=== PATIENT | male | born 1975 | race Caucasian/White ===

== ENCOUNTER → 2017-08-05 18:47 | Outpatient (CLI) | payer BC, SELFPAY | PROVIDERS: Family Provider Family Medicine Geriatric Medicine; PCP Family Medicine Geriatric Medicine; Visit Provider Pediatrics | DX: R69 Illness, unspecified (principal) | CPT/HCPCS: 87070; 87077; 87186; 87205 ==

== ENCOUNTER 2017-11-28 01:20 | Emergency (ER) | payer BC, SELFPAY ==
[2017-11-28 01:21] VITALS: BP 142/94; PULSE 83; RESP 21; TEMP 36.4; O2SAT 98; BMI 37.2
[2017-11-28 01:24] VITALS: O2SAT 98
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
[2017-11-28] MEDS: HYDROcodone Bitartrate/Apap 5/325 Tablet PO (02:37)
[2017-11-28 02:38] VITALS: RESP 16
== END 2017-11-28 02:39 | disposition home or self-care (01) ==
LOC: ED 02:00
PROVIDERS: Emergency Provider Emergency Medicine; Family Provider Family Medicine Geriatric Medicine; PCP Family Medicine Geriatric Medicine
DX: S09.90XA Unspecified injury of head, initial encounter (principal); S16.1XXA Strain of muscle, fascia and tendon at neck level, initial encounter; V49.88XA Car occupant (driver) (passenger) injured in other specified transport accidents, initial encounter; Y93.89 Activity, other specified; Y92.410 Unspecified street and highway as the place of occurrence of the external cause; G47.33 Obstructive sleep apnea (adult) (pediatric)
CPT/HCPCS: 70450; 72125; 99284

== ENCOUNTER 2018-02-07 10:00 | Outpatient (RCR) | payer BC, SELFPAY ==
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
--- NOTE | 2018-02-07 11:23 | HP.PTDCSUM ---
HP - PT D/C Summary It has been my pleasure to treat JEIMY MCCOLLUM under orders from Aston Schwab, for the diagnosis of DEGENERATIVE CERVICAL DISC,CONCUSSION WITHOUT LOSS CONSCIOUSNESS for a total of 7 visit(s). Discharge Date: 02/07/18 Please see the following information for a summary of their discharge status. - Subjective Subjective: Doing good.Will return to DR in 2weeks. When sitting all day at work 12 hours..cervical spine gets sore,but exercise makes symptoms better. NO STODDARD - Pain Bilateral Neck Pain Intensity (Out of 10): 0 - Overall Improvement % Improvement: 80 - Objective Objective/Function: POSTURE: mild foward posture. PALPATION: unremarkable. NEURO: inact denies parathesia/tingling ,reflexes C5-6-7 2/3. MMT: 4/5 grossly. CERVICAL ROM: flexion min loss,rotation /lateral flexion ,extension min loss no - Goals Goal 1:: Independant with HEP. Goal Progress: Goal Met Goal 2:: Patient to be Independant with posture for ADL'S Goal Progress: Goal Met Goal 3:: Patient decreaase pain cervical spine by 50% or greater to improve function with ADL'S Goal Progress: Goal Met Goal 4:: Patient improve cervical ROM for function of recovery without pain Goal Progress: Goal Met Goal 5:: Patient be able to return to job demands and housewok tasks with no limitations Goal Progress: Goal Met - Plan Plan: D/C TO HEP - D/C Information Discharge Comments: HEP,POSSIBLE HOME TRACTION UNIT If there are questions or concerns regarding this patient's physical therapy, please feel free to call me at [phone]. Thank you for the referral of this patient. Sincerely, Rajiv Hook, PT,
== END 2018-02-07 19:00 | disposition home or self-care (01) ==
LOC: PT 10:00
PROVIDERS: Family Provider Family Medicine Geriatric Medicine; PCP Family Medicine Geriatric Medicine
DX: M50.30 Other cervical disc degeneration, unspecified cervical region (principal); S06.0X0D Concussion without loss of consciousness, subsequent encounter
CPT/HCPCS: 97012; 97035; 97110; 97140; 97162

== ENCOUNTER 2018-08-20 08:58 | Observation (INO) | payer BC, SELFPAY ==
[2018-08-20] VITALS (13 sets, daily range): BP systolic 111–182; BP diastolic 67–104; PULSE 65–84; RESP 16–18; TEMP 35.6–36.9; O2SAT 94–98; BMI 40.0; BMI 39.6; BMI 39.7
--- NOTE | 2018-08-20 09:06 | RAD_ITS ---
STUDY: X-RAY CHEST REASON FOR EXAM: Male, 43 years old. Chest pain. TECHNIQUE: Single AP portable view of the chest. COMPARISON: None. FINDINGS: The lungs are clear and expanded. Scattered calcified granulomas. There is no demonstrated pleural abnormality. Normal size heart. Normal mediastinum and toma. Normal visualized pulmonary arteries. Normal visualized aortic arch and descending thoracic aorta. Normal visualized thoracic spine. Normal visualized ribs, clavicles, and shoulders. There is no demonstrated abnormality of the visualized soft tissue structures of the upper abdomen. RAD/Chest 1 View (Portable) IMPRESSION: Normal x-ray examination of the chest. Electronically Signed: Daren Clayton MD at 9:40 EST Tel [phone], Service support ,
--- NOTE | 2018-08-20 09:06 | EKG12_ITS ---
Test Reason : CHEST PAIN Blood Pressure : / mmHG Vent. Rate : 079 BPM Atrial Rate : 079 BPM P-R Int : 196 ms QRS Dur : 092 ms QT Int : 390 ms P-R-T Axes : 027 071 -28 degrees QTc Int : 447 ms Normal sinus rhythm T wave abnormality, consider inferolateral ischemia Abnormal ECG Confirmed by VALENTINE LARSON, ANGELA ([id number]), scientific editor RAFAEL COURTNEY ([id number]) on 08/21/2018 3:44:34 PM Referred By: YNES Confirmed By:ANGELA GRIJALVA MD
--- NOTE | 2018-08-20 09:06 | NURSING ---
NO OLD EKGS
[2018-08-20] MEDS: Aspirin 81 MG TAB.CHEW 324 MG PO (09:23)
--- NOTE | 2018-08-20 09:24 | ED.DCSUM_ITS ---
- ER Visit Summary Date of Service: 08/20/18 Chief Complaint: Chest pain History of Present Illness: The patient is a 43 M past medical history of anxiety and Nexium. He does not believe he is ever had a stress test or heart cath. No family history of cardiac disease. He quit smoking but he used to smoke cigars occasionally. States he worked out yesterday and had 4 miles on the elliptical. This morning when he awoke he had chest heaviness or tightness. Since about a 5-6 out of 10. He also states when he walks he feels like he cannot catch a deep breath. No pleuritic chest pain. No DVT or PE history. No calf pain or swelling. No hemoptysis. Physical Examination: Well-appearing middle-age male. Vital signs are stable. He is afebrile. His pulse ox is 90% on room air. Initial blood pressure is elevated at 182/104. H EENT exam unremarkable. Neck nontender. Lungs clear to auscultation bilaterally. Heart regular rate and rhythm rate about 80. No murmur appreciated. Chest wall no significant tenderness. Abdomen soft nontender. Normal bowel sounds. No peritoneal signs. Patient is moving all 4 extremities. 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 Dorsi plantar flexion intact. Calves are nontender without edema nor cords. Equal symmetrical radial pulses. Neurologically is awake and alert with no focal motor deficits. Test Results: Patient's initial EKG shows a sinus rhythm a rate of 79 he does have inverted T waves in Leads 2, 3 and aVF. Also in V4, 5 and 6. No old EKG for comparison. CBC normal. Chemistries normal. Troponin normal. Chest x-ray no acute abnormality read both by myself and the radiologist. Normal cardiac silhouette and mediastinum. Emergency Department Course and Treatment: She will undergo a cardiac workup. He will receive p.o. aspirin and sublingual nitro. Treatment Plan: Repeat exam the patient is doing well at 09 51. He is received sublingual nitro without any. I did go over all test results with both he and his . He understands the need for admission and further evaluation. I have the hospitalist on page. Disposition: Admission Impression: Acute chest pain of uncertain etiology with an abnormal EKG This note was generated with [employer] dictation software. It may contain incorrect words, spelling, and punctuation that were not noted in review of the chart prior to signing ED Disposition - Plan for ED Patient: Chief Complaint: Chest Pain Referrals: Francisco Ennis Chi, MD [Primary Care Provider] -
[2018-08-20 09:29] LABS: Absolute Lymphocyte Count 2.23 X10^3/ul (0.83-4.51); Absolute Neutrophil Count 3.8 X10^3/uL (2.0-7.7); Basophil# 0.03 X10^3/uL; Basophil% 0.4 % (0-1); Eosinophil# 0.15 X10^3/uL; Eosinophils% 2.2 % (0-5); Hematocrit 44.8 % (40-54); Hemoglobin 14.7 g/dl (13.0-16.5); Lymphocyte # 2.23 X10^3/ul (4.0); Lymphocyte % 32.6 % (19-41); Mean Corp Hgb Conc 32.8 g/gl (32-36); Mean Corpuscular Hgb 28.3 pg (27.0-32.0); Mean Corpuscular Volume 86.2 fL (80-94); Mean Platelet Vol. 9.5 fl (6.2-12.0); Monocyte# 0.61 X10^3/uL; Monocyte% 8.9 % (0-10); Neutrophil % 55.6 % (47-70); POSITIVE COUNT NO; POSITIVE DIFFERENTIAL NO; POSITIVE MORPHOLOGY NO; Platelet Count 262 K/mm3 (150-450); RBC Distribution Width CV 13.4 % (11.6-14.6); RBC Distribution Width SD 41.9 fl (35.1-43.9); White Blood Count 6.8 K/mm3 (4.4-11.0)
[2018-08-20 09:35] LABS: Anion Gap 9 (5-15); BUN 16 mg/dL (7-18); BUN/Creat Ratio 15.8 RATIO (10-20); Calcium,Total 8.9 mg/dL (8.5-10.1); Chloride 107 mmol/L (98-107); Creatinine, Serum 1.01 mg/dL (0.70-1.30); EST Glomerular Filtration Rate 86 mL/min (>60); Est Glom Filt Rate - Afr Amer 105 mL/min (>60); Estimated Creatinine Clearance 118.17 ml/min; Glucose 104 mg/dL (74-106); Potassium 4.1 mmol/L (3.5-5.1); Sodium Level 142 mmol/L (136-145)
--- NOTE | 2018-08-20 09:57 | NURSING ---
DR RONALDO CLARKE
--- NOTE | 2018-08-20 10:04 | NURSING ---
PCU OBS CP RONALDO
--- NOTE | 2018-08-20 10:06 | HP.PCM_ITS ---
Problem List (1) Chest pain Status: Acute (2) BMI 39.0-39.9,adult Status: Chronic (3) GERD (gastroesophageal reflux disease) Status: Chronic (4) Anxiety disorder Status: Chronic History of Present Illness Date of Admission: 08/20/18 Chief Complaint: Chest discomfort The patient is a 43 year old M with past medical history is again for GERD, anxiety disorder who presented with chest discomfort. Patient reports weeks of intermittent chest pain. Patient related the pain to exertion on occasions however he did also experience pain was at rest. Patient did experience some nausea on the morning of his admission when his pain was more intense than usual. He denied any shortness of breath. He denies any lightheadedness. He presented to the emergency department initial set of cardiac enzymes Came back negative admitted to a monitored bed for subsequent management Past Medical History Past Medical History (Chronic Problems): Chronic Problems BMI 39.0-39.9,adult (Chronic) GERD (gastroesophageal reflux disease) (Chronic) Anxiety disorder (Chronic) Allergies flaxseed Allergy (Verified 11/28/17 01:20) Itching Home Medications: Ambulatory Orders Medication Instructions Recorded traZODone [Desyrel] 100 mg PO QHS PRN 06/29/16 Mcdowell-3 Fatty Acids [Fish Oil] 500 mg PO DAILY 07/09/17 Multivitamin [Multiple Vitamins] 1 tab PO DAILY 08/20/18 Smoking Status: Never smoker - *Family History Maternal History Items: - - Healthy with no significant medical issues Paternal History Items: Heart Disease - CHF Review of Systems Constitutional: Denies: Anorexia, Chills, Fever, Night Sweats, Weight Change HEENT: Denies: Head Aches, Sinus Congestion, Sinus Drainage Cardiovascular: Reports: Chest Pain. Denies: Orthopnea, Palpitations, Paroxysmal Noc. Dyspnea Respiratory: Denies: Cough, Shortness of breath at rest, Shortness of breath upon exertion, Sputum production Gastrointestinal: Denies: Abdominal Pain, Hematemesis, Hematochezia, Nausea, Me nic, Vomiting Genitourinary: Denies: Dysuria, Frequency, Hematuria, Urgency Musculoskeletal: Denies: Joint Pain, Joint Tenderness Skin: Denies: Rash Neurological: Denies: Focal weakness, Numbness, Tingling Psychiatric: Reports: Anxiety. Denies: Homicidal Ideations, Suicidal Ideations Hematologic/ Lymphatic: Denies: Easy Bruising, Easy Bleeding VTE Information - Inpt Only VTE Present on Admission: No VTE Mechan Device Prophylaxis: Knee High KIMBERLY Hose VTE Pharm Prophylaxis ordered?: Yes Patient Problems: Active and Suspected Problems Chest pain (Acute) Objective: GENERAL: cooperative HEENT: Atraumatic; moist oral mucosa EYES; Anicteric, Normal Conjunctiva NECK; supple, normal thyroid, no distended JVD. RESPIRATORY: Diminished to auscultation bilaterally, CARDIOVASCULAR: Regular S1 S2, no audible murmurs GI: soft, non-tender, normoactive bowel sounds, : No Renal angle tenderness; EXTREMITIES: No edema, no clubbing, no cyanosis. MUSCULOSKELETAL: No Joint Tenderness; no muscle waisting NEURO: Awake; no lateralizing signs. SKIN: No Rash PSYCH; Normal affect - Physical Exam Vital Signs Temp Pulse Resp BP Pulse Ox 96.1 F L 77 18 111/71 94 08/20/18 08:59 08/20/18 09:50 08/20/18 09:49 08/20/18 09:50 08/20/18 09:49 Oxygen Flow Rate (L/min) 2 Oxygen Delivery Method Nasal Cannula Weight: 149.1 kg Body Mass Index (BMI) 40.0 Laboratory Tests Past 24 Hrs 08/20/18 08/20/18 09:11 09:11 WBC 6.8 RBC 5.20 Hgb 14.7 Hct 44.8 MCV 86.2 MCH 28.3 MCHC 32.8 RDW 13.4 RDW Differential 41.9 Plt Count 262 MPV 9.5 Immature Gran % (Auto) 0.300 Neut % (Auto) 55.6 Lymph % (Auto) 32.6 Bracken % (Auto) 8.9 Eos % (Auto) 2.2 Baso % (Auto) 0.4 Absolute Neuts (auto) 3.8 Absolute Lymphs (auto) 2.23 Total Counted Not Reportable Sodium 142 Potassium 4.1 Chloride 107 Carbon Dioxide 26.0 Anion Gap 9 BUN 16 Creatinine 1.01 Estim Creat Clear Calc 118.17 Est GFR (MDRD) Af Amer 105 Est GFR (MDRD) Non-Af 86 BUN/Creatinine Ratio 15.8 Glucose 104 Calcium 8.9 Troponin I < 0.015 Assessment/Plan All Active Problems Chest pain (Acute) Patient is a 43-year-old gentleman presenting with chest pain 1. Chest pain patient has been admitted dated bed: Plan is to rule out SD with serial cardiac enzymes patient undergo a nuclear stress test if SD is ruled out 2. Obesity with BMI of 39.7 lifestyle modification including weight loss advised 3. Insomnia patient uses trazodone at night 4. Anxiety disorder 5. GERD 6. DVT prophylaxis SC Lovenox Code Visit OBSV E&M: 48740 Initial observation care L3
--- NOTE | 2018-08-20 10:17 | ECHOD_ITS ---
Reason For Study: Chest Pain Procedure This was a 2D Doppler, Color Flow transthoracic echocardiogram. Exam performed portable in patient room. Left Ventricle Normal size and thickness. The estimated ejection fraction is 65 %. Normal diastology for age. No regional wall motion abnormalities noted. Right Ventricle Normal size and thickness. Normal systolic function. Atria The left atrium is mildly enlarged. Normal right atrium. Normal atrial septum. Mitral Valve The mitral valve is structurally normal. No prolapse or stenosis seen. Trivial mitral valve insufficiency. Tricuspid Valve Normal tricuspid valve. Trivial tricuspid valve insufficiency. Right ventricular systolic pressure estimated to be 19 mmHg. Aortic Valve Trisinus/trileaflet aortic valve. Pulmonic Valve Normal pulmonic valve. Great Vessels Normal aortic root. Normal arch. Normal inferior vena cava. Inferior vena cava collapse with sniff. Pericardium/Pleural No pericardial effusion. Medication Definity0.5ml given slow IV push to enhance endocardial definition. MMode/2D Measurements & Calculations LVIDd: 4.8 cm IVSd: 1.7 cm Ao root diam: 3.1 cm LVIDs: 2.9 cm LVPWd: 1.6 cm RVDd: 3.3 cm FS: 40.3 % LAV(MOD-bp): 84.1 ml LVAd ap4: 36.6 cm2 SV(MOD-sp4): 77.7 ml LAV(MOD-bp) Indexed: 30.8 ml/m2 EDV(MOD-sp4): 120.1 ml LAV(MOD-sp2): 101.2 ml EDV(sp4-el): 122.1 ml LAV(MOD-sp4): 70.1 ml LVAs ap4: 20.1 cm2 ESV(MOD-sp4): 42.4 ml ESV(sp4-el): 43.4 ml EF(MOD-sp4): 64.7 % EF(sp4-el): 64.5 % SV(sp4-el): 78.7 ml LA A4 area: 22.9 cm2 LA dimension(2D): 4.4 cm RA A4 area: 21.0 cm2 Doppler Measurements & Calculations MV E max florin: 85.9 cm/sec Lat Peak E' Florin: 14.0 cm/sec Med Peak E' Florin: 10.8 cm/sec MV A max florin: 47.8 cm/sec E/E' lat: 6.1 E/E' med: 8.0 MV E/A: 1.8 Ao V2 max: 122.2 cm/sec LV V1 max: 104.2 cm/sec PA V2 max: 89.7 cm/sec Ao max P.0 mmHg LV V1 max P.3 mmHg Ao V2 mean: 86.4 cm/sec Ao mean P.3 mmHg Ao V2 VTI: 25.4 cm TR max florin: 188.7 cm/sec TR max P.2 mmHg Interpretation Summary The estimated ejection fraction is 65 %. Normal diastology for age. Trivial mitral valve insufficiency. Trivial tricuspid valve insufficiency. Right ventricular systolic pressure estimated to be 19 mmHg. The study was technically difficult. There is no comparison study available. Contrast injection was performed. Ordering Physician: Schuyler Ramos Referring Physician: Francisco Ennis Chi Performed By: Nya Noonan, PERLA, RVT
[2018-08-20] MEDS: Enoxaparin 40 MG/0.4 ML Syringe SC (11:09)
[2018-08-20] MEDS: Sodium Chloride 0.65% 1 SPRAY SPRAY.BTL 2 SPRAY NASAL (14:16)
[2018-08-20] MEDS: traZODone 50 MG Tablet 100 MG PO (20:56)
[2018-08-21 02:56] VITALS: BP 114/67; PULSE 74; RESP 14; TEMP 36.8; O2SAT 93
[2018-08-21 03:05] VITALS: PULSE 83
[2018-08-21 05:22] LABS: Hemoglobin 14.3 g/dl (13.0-16.5); Mean Corpuscular Hgb 28.9 pg (27.0-32.0); Mean Corpuscular Volume 84.8 fL (80-94); Mean Platelet Vol. 9.1 fl (6.2-12.0); Platelet Count 273 K/mm3 (150-450); RBC Distribution Width CV 13.3 % (11.6-14.6); Red Blood Count 4.95 M/mm3 (4.6-6.2)
[2018-08-21 05:23] LABS: Scan Indicated on CBC? Y/N NO
[2018-08-21 05:29] VITALS: BP 112/71; PULSE 64; RESP 14; TEMP 36.7; O2SAT 96
[2018-08-21] MEDS: Aspirin E.C. 81 MG Tablet PO (05:30)
[2018-08-21 05:32] LABS: Prothrombin Time (Protime)PT. 13.1 SECONDS (11.7-14.9)
[2018-08-21 05:33] LABS: Partial Thromboplast Time 30.5 Seconds (24.1-36.2)
[2018-08-21 05:47] LABS: Anion Gap 7 (5-15); BUN 12 mg/dL (7-18); BUN/Creat Ratio 12.6 RATIO (10-20); Calcium,Total 8.5 mg/dL (8.5-10.1); Chloride 108 mmol/L (98-107); Cholesterol 155 mg/dL (200); Creatinine, Serum 0.95 mg/dL (0.70-1.30); EST Glomerular Filtration Rate 93 mL/min (>60); Est Glom Filt Rate - Afr Amer 112 mL/min (>60); Estimated Creatinine Clearance 125.63 ml/min; Glucose 98 mg/dL (74-106); High Density Lipoprotein 32 mg/dL; Potassium 4.1 mmol/L (3.5-5.1); Sodium Level 141 mmol/L (136-145); Thyroid Stim Hormone (TSH) 2.65 uIU/mL (0.358-3.74); Triglycerides 186 mg/dL; Very Low Density Lipoprotein 37 mg/dL (5-40)
--- NOTE | 2018-08-21 05:55 | EKG12_ITS ---
Test Reason : AM Blood Pressure : / mmHG Vent. Rate : 067 BPM Atrial Rate : 067 BPM P-R Int : 206 ms QRS Dur : 092 ms QT Int : 416 ms P-R-T Axes : 020 038 -41 degrees QTc Int : 439 ms Normal sinus rhythm T wave abnormality, consider inferior ischemia T wave abnormality, consider anterolateral ischemia Abnormal ECG When compared with ECG of 20-AUG-2018 09:12, MANUAL COMPARISON REQUIRED, DATA IS UNCONFIRMED Confirmed by VIKTOR OVERTON ([id number]), associate entertainment editor RAFAEL COURTNEY ([id number]) on 08/25/2018 2:57:11 PM Referred By: RONALDO Confirmed By:VIKTOR OVERTON
[2018-08-21 06:22] VITALS: PULSE 67
[2018-08-21 09:14] VITALS: BP 121/71; PULSE 78; RESP 14; TEMP 37.2; O2SAT 97
--- NOTE | 2018-08-21 09:53 | STRESSREP_ITS ---
Stress Test Report Date: 08/21/2018 Procedure: Exercise tolerance test/imaging study Indications: Chest pain; abnormal ECG Consent: Per the patient Procedure: The patient exercised on a Tang protocol for 9 minutes completing Stage III achieving a peak heart rate of 164 bpm (91 % predicted maximal heart rate) with a peak blood pressure 210/88 mmHg and a peak MET capacity of 10 METs. The baseline ECG demonstrated normal sinus rhythm; T wave abnormality. The peak exercise ECG demonstrated continued T wave abnormality. There were no cardiac dysrhythmias pretest, during exercise, or recovery. The blood pressure response was considered a normal resting blood pressure with an exaggerated response. The functional capacity was considered good. There was no complaint of chest discomfort during exercise or recovery. The examination was discontinued secondary to dyspnea. Impression: 1. Technically adequate (percent predicted maximal heart rate greater than 85%) exercise tolerance test 2. Peak exercise ECG continued T wave abnormality 3. There were no cardiac dysrhythmias pretest, during exercise, or recovery 4. Nuclear images pending Myocardial perfusion imaging study: Technique: The patient was injected with 14.6 mCi of technetium 99m Cardiolite and subsequently rest SPECT Cardiolite nuclear imaging was obtained in the horizon farhan long, vertical long, and short axis views. The patient exercised on a Tang protocol for 9 minutes completing Stage III achieving a peak heart rate of 164 bpm (91 % predicted maximal heart rate) with a peak blood pressure 210/88 mmHg and a peak MET capacity of 10 METs. The patient was injected with 44.9 mCi of technetium 99m Cardiolite and subsequently stress SPECT Cardiolite nuclear imaging was obtained in the horizontal long, vertical long, and short axis views. A gated Cardiolite study at peak stress was obtained. Interpretation: Rest and stress SPECT Cardiolite nuclear imaging status post realignment, normalization, and attenuation correction, demonstrates the appearance of relative uniform tracer uptake and myocardial perfusion appearing within normal limits. There is end systolic thickening and brightening. The gated Cardiolite study demonstrates myocardial thickening and inward wall motion. The reported LVEF is 61 %. Impression: 1. Rest and stress SPECT Cardiolite nuclear imaging demonstrate relative uniform tracer uptake and myocardial perfusion appearing within normal limits. 2. The gated Cardiolite study reports an LVEF of 61 %. This note was generated with [employer] software. It may contain incorrect words, spelling, and punctuation that were not noted in checking the note before signing.
--- NOTE | 2018-08-21 10:23 | DCINST_ITS ---
- Discharge Diagnoses Current Active Problems: Current Active and Chronic Problems Chest pain (Acute) BMI 39.0-39.9,adult (Chronic) GERD (gastroesophageal reflux disease) (Chronic) Anxiety disorder (Chronic) You will use the following diet at home:: No restrictions Instructions: ED Chest Pain NonCardiac Allergies/Adverse Reactions: Allergies flaxseed Allergy (Verified 11/28/17 01:20) Itching spinach Allergy (Verified 08/20/18 10:36) Itching Medications to take at Discharge traZODone [Desyrel] 100 mg PO QHS PRN 06/29/16 [place]-3 Fatty Acids [Fish Oil] 500 mg PO DAILY 07/09/17 Multivitamin [Multiple Vitamins] 1 tab PO DAILY 08/20/18 Primary Care Physician: Francisco Ennis Chi, MD [Primary Care Provider] - Test Results: Test results from this visit will be discussed in further detail at your follow- up appointment, if applicable. Proposed Discharge Date: 08/21/18
--- NOTE | 2018-08-21 10:23 | PCM.DC.SUM ---
Discharge Date and Diagnosis - Problem List Patient Problems: Active and Suspected Problems Chest pain (Acute) Date of Admission: 08/20/18 Date of Discharge: 08/21/18 - Primary Discharge Diagnosis Active and Suspected Problems Chest pain (Acute) - Secondary Discharge Diagnosis Chronic Problems BMI 39.0-39.9,adult (Chronic) GERD (gastroesophageal reflux disease) (Chronic) Anxiety disorder (Chronic) Hospital Course and Treatment Imaging Results: 08/21/18 05:55 Nuclear Stress Test - Treadmil [NM] AM (NON MEDS) Summary of Care Provided: Patient is a 43-year-old gentleman presenting with chest pain 1. Chest pain patient has been admitted dated bed: Rule out myocardial infarction with serial cardiac enzymes patient underwent a nuclear stress test which was negative for stress-induced ischemia. Patient however had a hypertensive reaction during the stress test. He was informed of this instructed to follow-up with PCP to keep a close eye on his blood pressure 2. Obesity with BMI of 39.7 lifestyle modification including weight loss advised 3. Insomnia patient uses trazodone at night 4. Anxiety disorder 5. GERD 6. DVT prophylaxis SC Lovenox Patient Problems: Active and Suspected Problems Chest pain (Acute) - Physical Exam Vital Signs Temp Pulse Resp BP Pulse Ox 99 F 78 14 121/71 H 97 08/21/18 09:14 08/21/18 09:14 08/21/18 09:14 08/21/18 09:14 08/21/18 09:14 Oxygen Flow Rate (L/min) 2 Oxygen Delivery Method Room Air Weight: 147.9 kg Body Mass Index (BMI) 39.6 Intake and Output for Last 24 Hours 08/19/18 08/20/18 08/21/18 23:59 23:59 23:59 Intake Total 1280 / 1280 Balance 1280 / 1280 Laboratory Tests Past 24 Hrs 08/20/18 08/20/18 08/21/18 11:40 14:54 05:10 WBC 6.0 RBC 4.95 Hgb 14.3 Hct 42.0 MCV 84.8 MCH 28.9 MCHC 34.0 RDW 13.3 RDW Differential 41.0 Plt Count 273 MPV 9.1 PT INR APTT Sodium Potassium Chloride Carbon Dioxide Anion Gap BUN Creatinine Estim Creat Clear Calc Est GFR (MDRD) Af Amer Est GFR (MDRD) Non-Af BUN/Creatinine Ratio Glucose Calcium Troponin I < 0.015 < 0.015 Triglycerides Cholesterol LDL Cholesterol VLDL Cholesterol HDL Cholesterol TSH 08/21/18 08/21/18 05:10 05:10 WBC RBC Hgb Hct MCV MCH MCHC RDW RDW Differential Plt Count MPV PT 13.1 INR 1.0 APTT 30.5 Sodium 141 Potassium 4.1 Chloride 108 H Carbon Dioxide 26.0 Anion Gap 7 BUN 12 Creatinine 0.95 Estim Creat Clear Calc 125.63 Est GFR (MDRD) Af Amer 112 Est GFR (MDRD) Non-Af 93 BUN/Creatinine Ratio 12.6 Glucose 98 Calcium 8.5 Troponin I Triglycerides 186 Cholesterol 155 LDL Cholesterol 86 VLDL Cholesterol 37 HDL Cholesterol 32 L TSH 2.65 Discharge Diet: No Restrictions Home Medications: Medications to take at Discharge traZODone [Desyrel] 100 mg PO QHS PRN 06/29/16 [place]-3 Fatty Acids [Fish Oil] 500 mg PO DAILY 07/09/17 Multivitamin [Multiple Vitamins] 1 tab PO DAILY 08/20/18 Primary Care Physician: Francisco Ennis Chi, MD [Primary Care Provider] - Patient Instructions: ED Chest Pain NonCardiac Disposition: Home Minutes spent on discharge:: 35 Patient Condition:: Stable Medical Necessity - Tobacco Use Smoking Status: Never smoker Meaningful Use Info Meaningful Use Diagnoses (Choose all that apply): None applicable Code Visit OBSV E&M: 42016 Observation care discharge
--- NOTE | 2018-08-21 10:37 | PCM.PN.HOSP ---
Patient Problems: Active and Suspected Problems Chest pain (Acute) Subjective: To undergo a nuclear stress test Objective: GENERAL: cooperative HEENT: Atraumatic; moist oral mucosa EYES; Anicteric, Normal Conjunctiva NECK; supple, normal thyroid, no distended JVD. RESPIRATORY: Diminished to auscultation bilaterally, CARDIOVASCULAR: Regular S1 S2, no audible murmurs GI: soft, non-tender, normoactive bowel sounds, : No Renal angle tenderness; EXTREMITIES: No edema, no clubbing, no cyanosis. MUSCULOSKELETAL: No Joint Tenderness; no muscle waisting NEURO: Awake; no lateralizing signs. SKIN: No Rash PSYCH; Normal affect Vitals/I&O's: Vital Signs Temp Pulse Resp BP Pulse Ox 99 F 78 14 121/71 H 97 08/21/18 09:14 08/21/18 09:14 08/21/18 09:14 08/21/18 09:14 08/21/18 09:14 Oxygen Flow Rate (L/min) 2 Oxygen Delivery Method Room Air Weight: 147.9 kg Body Mass Index (BMI) 39.6 Intake and Output for Last 24 Hours 08/19/18 08/20/18 08/21/18 23:59 23:59 23:59 Intake Total 1280 / 1280 Balance 1280 / 1280 Laboratory Results 08/20/18 11:40: Troponin I < 0.015 08/20/18 14:54: Troponin I < 0.015 08/21/18 05:10: WBC 6.0, RBC 4.95, Hgb 14.3, Hct 42.0, MCV 84.8, MCH 28.9, MCHC 34.0, RDW 13.3, RDW Differential 41.0, Plt Count 273, MPV 9.1 08/21/18 05:10: Sodium 141, Potassium 4.1, Chloride 108 H, Carbon Dioxide 26.0, Anion Gap 7, BUN 12, Creatinine 0.95, Estim Creat Clear Calc 125.63, Est GFR (MDRD) Af Amer 112, Est GFR (MDRD) Non-Af 93, BUN/Creatinine Ratio 12.6, Glucose 98, Calcium 8.5, Triglycerides 186, Cholesterol 155, LDL Cholesterol 86, VLDL Cholesterol 37, HDL Cholesterol 32 L, TSH 2.65 08/21/18 05:10: PT 13.1, INR 1.0, APTT 30.5 Current Medications Aspirin (Ecotrin) 81 mg PO DAILY@0800 [facility] Last Admin: 08/21/18 05:30 Dose: 81 mg Enoxaparin Sodium (Lovenox) 40 mg SC DAILY@1000 [facility] Last Admin: 08/20/18 11:09 Dose: 40 mg Magnesium Hydroxide (Milk Of Magnesia) 30 ml PO DAILY PRN PRN Reason: Constipation Nitroglycerin (Nitrostat) 0.4 mg SUBLINGUAL Q5M PRN PRN Reason: CHEST PAIN Sodium Chloride () 5 - 30 ml IV UD PRN PRN Reason: SALINE FLUSH Sodium Chloride (Winkler Nasal [place]) 2 spray NASAL BID PRN PRN PRN Reason: NASAL DRYNESS Last Admin: 08/20/18 14:16 Dose: 2 spray Trazodone HCl (Desyrel) 100 mg PO QHS PRN PRN Reason: INSOMNIA Last Admin: 08/20/18 20:56 Dose: 100 mg Medical Necessity - Tobacco Use Smoking Status: Never smoker Assessment/Plan All Active Problems Chest pain (Acute) Patient is a 43-year-old gentleman presenting with chest pain 1. Chest pain patient has been admitted dated bed: Plan is to rule out CO with serial cardiac enzymes patient undergo a nuclear stress test if CO is ruled out 2. Obesity with BMI of 39.7 lifestyle modification including weight loss advised 3. Insomnia patient uses trazodone at night 4. Anxiety disorder 5. GERD 6. DVT prophylaxis SC Lovenox
== END 2018-08-21 10:22 | disposition home or self-care (01) ==
LOC: PCU 10:27 → ED 10:27
PROVIDERS: Admitting Provider Internal Medicine; Emergency Provider Emergency Medicine; Family Provider Family Medicine Geriatric Medicine; PCP Family Medicine Geriatric Medicine; Visit Provider Internal Medicine
DX: R07.89 Other chest pain (principal); K21.9 Gastro-esophageal reflux disease without esophagitis; Z23 Encounter for immunization; Z79.899 Other long term (current) drug therapy; E66.9 Obesity, unspecified; Z68.39 Body mass index [BMI] 39.0-39.9, adult; Z71.3 Dietary counseling and surveillance; G47.00 Insomnia, unspecified; Z87.891 Personal history of nicotine dependence
CPT/HCPCS: 36415; 71045; 78452; 80048; 80061; 84443; 84484; 85025; 85027; 85610; 85730; 93005; 93017; 93306; 96372; 99218; 99284; 99406; A9500; Q9957; 90686; A4216; C8929; G0378

== ENCOUNTER → 2018-08-27 15:07 | Outpatient (CLI) | payer BC, SELFPAY ==
[2018-08-20 10:29] VITALS: BMI 39.6
[2018-08-27 17:14] LABS: Absolute Lymphocyte Count 1.96 X10^3/ul (0.83-4.51); Absolute Neutrophil Count 4.6 X10^3/uL (2.0-7.7); Basophil# 0.02 X10^3/uL; Basophil% 0.3 % (0-1); Eosinophil# 0.12 X10^3/uL; Eosinophils% 1.6 % (0-5); Hematocrit 43.9 % (40-54); Hemoglobin 14.9 g/dl (13.0-16.5); Lymphocyte # 1.96 X10^3/ul (4.0); Lymphocyte % 26.5 % (19-41); Mean Corp Hgb Conc 33.9 g/gl (32-36); Mean Corpuscular Hgb 28.7 pg (27.0-32.0); Mean Corpuscular Volume 84.4 fL (80-94); Mean Platelet Vol. 9.7 fl (6.2-12.0); Monocyte# 0.62 X10^3/uL; Monocyte% 8.4 % (0-10); Neutrophil # 4.64 X10^3/uL (2.7-7.7); Neutrophil % 62.8 % (47-70); Platelet Count 373 K/mm3 (150-450); RBC Distribution Width CV 13.2 % (11.6-14.6); RBC Distribution Width SD 40.3 fl (35.1-43.9); White Blood Count 7.4 K/mm3 (4.4-11.0)
[2018-08-27 17:16] LABS: POSITIVE COUNT NO; POSITIVE DIFFERENTIAL NO; POSITIVE MORPHOLOGY NO
[2018-08-27 17:32] LABS: AST(SGOT) 22 U/L (15-37); Alanine Aminotransfer ALT/SGPT 52 U/L (16-61); Albumin, Serum 3.9 g/dL (3.2-5.0); Alkaline Phosphatase 66 U/L (45-117); Amylase 19 U/L (25-115); Anion Gap 9 (5-15); BUN 14 mg/dL (7-18); Calcium,Total 8.9 mg/dL (8.5-10.1); Chloride 105 mmol/L (98-107); Creatinine, Serum 1.08 mg/dL (0.70-1.30); EST Glomerular Filtration Rate 80 mL/min (>60); Est Glom Filt Rate - Afr Amer 97 mL/min (>60); Globulin 3.9 g/dL (2.2-4.2); Glucose 97 mg/dL (74-106); Lipase 91 U/L (73-393); Potassium 4.1 mmol/L (3.5-5.1); Protein, Total 7.8 g/dL (6.4-8.2); Sodium Level 141 mmol/L (136-145)
== END ==
PROVIDERS: Family Provider Family Medicine Geriatric Medicine; PCP Family Medicine Geriatric Medicine; Visit Provider Family Medicine Geriatric Medicine
DX: R10.9 Unspecified abdominal pain (principal)
CPT/HCPCS: 36415; 80053; 82150; 83690; 85025

== ENCOUNTER → 2018-08-28 09:19 | Outpatient (CLI) | payer BC, SELFPAY ==
--- NOTE | 2018-08-28 09:23 | US_ITS ---
STUDY: ABDOMINAL ULTRASOUND - RIGHT UPPER QUADRANT REASON FOR VISIT: Male, 43 years old. Possible gallstones. TECHNIQUE: Ultrasound evaluation of the right upper quadrant was performed with real-time and static carcamo-scale imaging. TECHNICAL QUALITY: Adequate. COMPARISON: None. FINDINGS: Liver: The liver measures 15.3 cm. There is increased echogenicity consistent with fatty infiltration. The bile ducts are within normal limits. There is hepatic color flow. The direction of portal flow is hepatopetal. There is no demonstrated mass lesion. Gallbladder: Normal distended gallbladder. The gallbladder wall measures 1.8 mm. There is a negative sonographic Eaton's sign. There is no pericholecystic fluid. There are no gallstones. Common Bile Duct (C.B.D.): The common bile duct measures 2.8 mm. Pancreas: Normal size of the head, body of the pancreas. The tail portion is obscured due to overlying bowel gas. There is normal echogenicity of the pancreas. There is no demonstrated pancreatic mass or cyst. Right Kidney: Normal size of the right kidney. The right kidney measures 13.8 cm x 6.2 cm x 5.2 cm. Normal renal cortex. The right cortex measures 1.3 cm. There is no demonstrated renal mass or cyst. There is no right hydronephrosis. US/Abdomen Limited IMPRESSION: Fatty infiltration of the liver. Electronically Signed: Daren Clayton MD at 13:48 EST Tel [phone], Service support ,
== END ==
PROVIDERS: Family Provider Family Medicine Geriatric Medicine; PCP Family Medicine Geriatric Medicine; Referring Provider Family Medicine Geriatric Medicine; Visit Provider Family Medicine Geriatric Medicine
DX: K80.20 Calculus of gallbladder without cholecystitis without obstruction (principal); K76.0 Fatty (change of) liver, not elsewhere classified
CPT/HCPCS: 76705

== ENCOUNTER → 2018-09-01 11:53 | Outpatient (CLI) | payer BC, SELFPAY ==
[2018-08-20 10:29] VITALS: BMI 39.6
--- NOTE | 2018-09-01 11:56 | NM_ITS ---
CLINICAL: 43-year-old female with reported history of right upper quadrant abdominal pain. RADIONUCLIDE HEPATOBILIARY SCINTIGRAPHY COMPARISON: Abdominal ultrasound report 08/28/2018 FINDINGS: Following the intravenous administration of 5.1 mCi of 99m Tc Mebrofenin, hepatobiliary images reveal: 1. Relatively prompt and homogeneous radiopharmaceutical concentration is noted by a normal sized liver. No parenchymal defects are identified. 2. Gallbladder activity is identified at 10 minutes post radiopharmaceutical administration. 3. Intestinal tract is not visualized during 60 minutes of sequential image acquisition. Small bowel is defined following the administration of the fatty meal. 4. Washout of the radiopharmaceutical by the hepatic parenchyma appears qualitatively normal. The patient was administered a fatty meal (8 ounces Boost). The post fatty meal ingestion gallbladder ejection fraction calculated at 60 minutes was noted to be 54.0 % (normal greater than 30%). NM/Hepatobilliary Img w/Pharm Int IMPRESSION: 1. NORMAL 99m Tc Mebrofenin hepatobiliary imaging examination with fatty meal ingestion. A. A gallbladder ejection fraction calculated to be greater than 30% following the administration of an ingested fatty meal makes the probability of functional hepatobiliary disease (gallbladder and/or sphincter of Oddi dyskinesia) and/or organic hepatobiliary disease (chronic acalculous cholecystitis and/or cystic duct syndrome) to be low. (Tigre and Asif, J Nucl Med 43: 1603, 2002). Electronically Signed: Johnny Chadwick DO at 23:55 EST Tel , Service support ,
== END ==
PROVIDERS: Family Provider Family Medicine Geriatric Medicine; PCP Family Medicine Geriatric Medicine; Referring Provider Family Medicine Geriatric Medicine; Visit Provider Family Medicine Geriatric Medicine
DX: K80.20 Calculus of gallbladder without cholecystitis without obstruction (principal)
CPT/HCPCS: 78227; A9537

== ENCOUNTER 2018-09-19 07:37 | Day surgery (SDC) | payer BC, SELFPAY ==
[2018-09-09 09:16] VITALS: BMI 37.1
--- NOTE | 2018-09-19 | GASB_PTH ---
PATIENT: JEIMY MCCOLLUM LOC: EN U#:[id number] AGE/SX: 43/M ROOM: RE09/19/[address]: Dr. Ramez Hagan MD : 1975 BED: DIS: 09/19/2018 SPEC #: [id number] RECD: 09/19/18 10:44 STATUS: GEOVANI JORGE #: [id number] MATTHEW: 09/19/18 00:[address]: Ramez Hagan DEPT: SURGICAL PATHOLOGY RECD BY: [place] ENTERED: 09/19/18 10:44 SP TYPE: Gastric Bx OTHR DR: Dr. Francisco Ennis MD Tissues: A - Gastric mucous membrane B - Gastric mucous membrane Procedures: Surgery Specimen Level IV HEADER OPERATION: EGD ([facility]) PRE-OP DIAGNOSIS: Abdominal pain, nausea TISSUE SUBMITTED: A - Antral biopsy for H. pylori and pathology, B - GE junction biopsy MICROSCOPIC DIAGNOSIS A. Gastric antrum, biopsy: Mild chronic gastritis. B. Gastroesophageal junction, biopsy: Mild chronic inflammation. AM:xin 09/22/18 COMMENT A. The results of immunohistochemistry for Helicobacter pylori will be reported separately ([id number]). MICROSCOPIC DESCRIPTION Slides are reviewed. GROSS DESCRIPTION A - Received in fixative is one container labeled with the patient's name and designated antral biopsy. The specimen consists of two irregular fragments of light humphrey soft tissue that in aggregate measure 0.7 x 0.7 x 0.2 cm. The specimen is totally submitted in one cassette. B - Received in fixative is one container labeled with the patient's name and designated GE junction biopsy. The specimen consists of multiple irregular fragments of light humphrey soft tissue that in aggregate measure 1 x 0.3 x 0.2 cm. The specimen is totally submitted in one cassette. / RY:xin 09/19/18 TC:3 CPT: 47295 x2
[2018-09-19 07:51] VITALS: BP 127/78; PULSE 72; RESP 16; TEMP 36.3; O2SAT 98; BMI 40.4
[2018-09-19 08:45] VITALS: BP 120/86; BP 127/78; PULSE 73; RESP 16; TEMP 36.7; O2SAT 94
--- NOTE | 2018-09-19 08:45 | IMM_PTH ---
PATIENT: JEIMY MCCOLLUM LOC: EN U#:[id number] AGE/SX: 43/M ROOM: RE09/19/[address]: Dr. Ramez Hagan MD : 1975 BED: DIS: 09/19/2018 SPEC #: [id number] RECD: 09/19/18 13:24 STATUS: NARAYANLisa REGrazyna #: [id number] MATTHEW: 09/19/18 08:[address]: Ramez Hagan DEPT: IMMUNOHISTOCHEMISTRY RECD BY: Alyse Olvera ENTERED: 09/19/18 13:25 SP TYPE: IMMUNO OTHR DR: Dr. Francisco Ennis MD Tissues: A - Stomach, NOS Procedures: H Pylori (initial) PHYSICIAN & INSTITUTION [place] [id number] SPECIMEN INFORMATION: Tissue Source: A - Antral biopsy Clinical Info: Abdominal pain, nausea Specimen Number: [id number] CPT code: 95638 METHODOLOGY: Deparaffinized sections of prefer/formalin-fixed tissue or PAP/DQ stained slides are incubated with monoclonal/polyclonal antibodies/oligonucleotide probes. Localization is made via biotin free immunoperoxidase method. Appropriate controls are performed and reacted as expected. Results on target cell population are indicated in the following table: RESULTS: ANTIBODY / CLONE RESULT Block A H Pylori (polyclonal) negative These tests were developed and their performance characteristics determined by [facility]. They may not have been cleared or approved by the U.S. Food and Drug Administration. The FDA has determined that such clearance or approval is not necessary. INTERPRETATION: A. Antral biopsy: Negative for Helicobacter pylori organisms. AM:xin 09/22/18
[2018-09-19 08:50] VITALS: BP 120/78; BP 127/78; PULSE 67; RESP 16; O2SAT 94
[2018-09-19 08:55] VITALS: BP 112/76; BP 127/78; PULSE 66; RESP 16; O2SAT 95
--- NOTE | 2018-09-19 08:55 | OP.ENDO_ITS ---
Patient Name: Aroldo Stone Procedure Date: 09/19/2018 8:24 AM Date of : 1975 Age: 43 Procedure: Upper GI endoscopy Indications: Epigastric abdominal pain, Suspected esophageal reflux Providers: Ramez Hagan MD Referring MD: Ramez Hagan MD Medicines: Monitored Anesthesia Care Patient Profile: This is a 43 year old male. Refer to note in patient chart for documentation of history and physical. Complications: No immediate complications. Estimated blood loss: Minimal. Procedure: Pre-Anesthesia Assessment: - Prior to the procedure, a History and Physical was performed, and patient medications and allergies were reviewed. The patient's tolerance of previous anesthesia was also reviewed. The risks and benefits of the procedure and the sedation options and risks were discussed with the patient. All questions were answered, and informed consent was obtained. Prior Anticoagulants: The patient has taken no previous anticoagulant or antiplatelet agents. After reviewing the risks and benefits, the patient was deemed in satisfactory condition to undergo the procedure. After obtaining informed consent, the endoscope was passed under direct vision. Throughout the procedure, the patient's blood pressure, pulse, and oxygen saturations were monitored continuously. The gastroscope was introduced through the mouth, and advanced to the second part of duodenum. The upper GI endoscopy was accomplished without difficulty. The patient tolerated the procedure well. Scope In: 8:34:23 AM Scope Out: 8:40:02 AM Total Procedure Duration Time 0 hours 5 minutes 39 seconds Findings: Scattered mild inflammation characterized by linear erosions was found in the gastric antrum. Biopsies were taken with a cold forceps for Helicobacter pylori testing. Biopsies were taken with a cold forceps for histology. The Z-line was variable. Biopsies were taken with a cold forceps for histology. The exam was otherwise without abnormality. Impression: - Gastritis. Biopsied. - Z-line variable. Biopsied. - The examination was otherwise normal. Recommendation: - Patient has a contact number available for emergencies. The signs and symptoms of potential delayed complications were discussed with the patient. Return to normal activities tomorrow. Written discharge instructions were provided to the patient. - Resume previous diet. - Continue present medications. - Await pathology results. - Discharge patient to home. Procedure Code(s): --- Professional --- 47507, Esophagogastroduodenoscopy, flexible, transoral; with biopsy, single or multiple Diagnosis Code(s): --- Professional --- K29.70, Gastritis, unspecified, without bleeding K22.8, Other specified diseases of esophagus R10.13, Epigastric pain CPT copyright 2017 [employer]. All rights reserved. The codes documented in this report are preliminary and upon scoop filler review may be revised to meet current compliance requirements. Ramez Hagan MD 09/19/2018 8:54:56 AM This report has been signed electronically. Number of Addenda: 0 Note Initiated On: 09/19/2018 8:24 AM
[2018-09-19 09:00] VITALS: BP 127/78; BP 132/65; PULSE 65; RESP 16; TEMP 36.6; O2SAT 96
[2018-09-19 09:08] VITALS: BP 127/78
== END 2018-09-19 09:18 | disposition home or self-care (01) ==
LOC: EN 07:39 → AC 07:40
PROVIDERS: Family Provider Family Medicine Geriatric Medicine; PCP Family Medicine Geriatric Medicine; Referring Provider Surgery; Visit Provider Surgery
PROC: 0DJ08ZZ Inspection of Upper Intestinal Tract, Via Natural or Artificial Opening Endoscopic (ICD-10-PCS; CPT 43235; principal; 2018-09-19 08:40)
DX: K29.50 Unspecified chronic gastritis without bleeding (principal); K21.0 Gastro-esophageal reflux disease with esophagitis; M19.90 Unspecified osteoarthritis, unspecified site; G47.30 Sleep apnea, unspecified; Z79.899 Other long term (current) drug therapy; Z87.891 Personal history of nicotine dependence
CPT/HCPCS: 43239; 88305; 88342; J7120; J2405

== ENCOUNTER 2018-09-26 10:12 | Outpatient (RCR) | payer BC, SELFPAY ==
--- OUTSIDE RECORDS SUMMARY | 2018-11-12 00:56 | XMS RPT_ITS ---
:1975 Author Organization [place] Support Name Relationship Address Phone [facility] [place] Unavailable [address] + [place] [address] MOISES MCCOLLUM Unavailable [address] + [place] [address] [facility] [place] Unavailable [address] + [place] [address] MOISES MCCOLLUM Unavailable [address] + [place] [address] SM Unavailable [address] + [place] [address] MOISES MCCOLLUM Unavailable [address] + [place] [address] SM Unavailable [address] + [place] [address] MOISES MCCOLLUM Unavailable [address] + [place] [address] SM Unavailable [address] + [place] [address] MOISES MCCOLLUM Unavailable [address] + [place] [address] SM Unavailable [address] + [place] [address] MOISES MCCOLLUM Unavailable [address] + [place] [address] [facility] [place] Unavailable [address] + [place] [address] MOISES MCCOLLUM Unavailable [address] + [place] [address] SM Unavailable [address] + [place] [address] MOISES MCCOLLUM Unavailable [address] + [place] [address] [facility] Unavailable [address] + [place] [address] MOISES MCCOLLUM Unavailable [address] + [place] [address] [facility] Unavailable [address] + [place] [address] MOISES MCCOLLUM Unavailable [address] + [place] [address] [facility] Unavailable [address] + [place] [address] MOISES MCCOLLUM Unavailable [address] + [place] [address] [facility] Unavailable [address] + [place] [address] MOISES MCCOLLUM Unavailable [address] + [place] [address] [facility] Unavailable [address] + [place] [address] MOISES MCCOLLUM Unavailable [address] + [place] [address] JM Unavailable [address] + [place] [address] MOISES MCCOLLUM Unavailable [address] + [place] [address] SM Unavailable [address] + [place] [address] MOISES MCCOLLUM Unavailable [address] + [place] [address] Care Team Providers Name Role Phone Raymon, Francisco Chi Attending Unavailable Raymon, Francisco Chi Primary Care Unavailable Ramez Hagan Attending Unavailable Raymon, Francisco Chi Primary Care Unavailable Moy Mendoza Attending Unavailable OLESYA LITTLEJOHN Attending Unavailable OLESYA LITTLEJOHN Referring Unavailable Raymon, Francisco Chi Primary Care Unavailable Raymon, Francisco Chi Primary Care Unavailable Schuyler Ramos Admitting Unavailable Schuyler Ramos Attending Unavailable Raymon, Francisco Chi Attending Unavailable Raymon, Francisco Chi Primary Care Unavailable Schuyler Ramos Admitting Unavailable Kittoe, Schuyler Attending Unavailable Raymon, Francisco Chi Primary Care Unavailable Kittoe, Schuyler Consulting Unavailable Kittoe, Schuyler Admitting Unavailable Kittoe, Schuyler Attending Unavailable Raymon, Francisco Chi Primary Care Unavailable Kittoe, Schuyler Consulting Unavailable Raymon, Francisco Chi Attending Unavailable Raymon, Francisco Chi Primary Care Unavailable Raymon, Francisco Chi Attending Unavailable Raymon, Francisco Chi Referring Unavailable Raymon, Francisco Chi Primary Care Unavailable Raymon, Francisco Chi Attending Unavailable Raymon, Francisco Chi Referring Unavailable Raymon, Francisco Chi Primary Care Unavailable CalabrettaFabiolaRamez Attending Unavailable Raymon, Francisco Chi Referring Unavailable Jack Overton Attending Unavailable Kittoe, Schuyler Referring Unavailable MoodisReal lopez Attending Unavailable Ronaldo, Schuyler Referring Unavailable Calabretta, Ramez Attending Unavailable [place], Ramez Referring Unavailable Raymon, Francisco Chi Primary Care Unavailable PROBLEMS PROBLEMS DATE TYPE CONDITION / CODE ATTENDING STATUS SOURCE 10/31/2018 Unknown E66.01 - Morbid Raymon, Francisco Chi Active [place] (severe) obesity Community due to excess Hospital calories / Repository E66.01(ICD-10) 09/29/2018 Unknown R10.13 - [place], Active [place] Epigastric pain / [facility] R10.13(ICD-10) Hospital Repository 09/29/2018 Unknown K29.70 - [facility], Active [place] Gastritis, [facility] unspecified, Hospital without bleeding Repository / K29.70(ICD-10) 09/29/2018 Unknown K21.0 - [facility], Active [place] Gastro-esophageal [facility] reflux disease Hospital with esophagitis Repository / K21.0(ICD-10) 09/09/2018 Unknown R10.11 - Right [place], Active [place] upper quadrant [facility] pain / Hospital R10.11(ICD-10) Repository 09/10/2018 Unknown R07.9 - Chest Real Candelaria Active [facility] pain, unspecified Community / R07.9(ICD-10) Hospital Repository PROCEDURES PROCEDURES No Procedure Records FoundRESULTS RESULTS OPERATIVE REPORT - Observed: 09/19/2018 Status: F Source: [place] [facility] 8:55 AM [facility] REPOSITORY [facility] Medical Records Department [address] [place] [address] Operative Report - Endoscopy MR#: [id number] Acct: [id number] Name: JEIMY MCCOLLUM Rep #: [id number] : 1975 43 From: Ramez Hagan MD PCP: Raymon LARSON,Francisco Florez Status: REG [facility] [place] Patient Name: Jeimy Mccollum Procedure Date: 09/19/2018 8:24 AM Date of : 1975 Age: 43 Procedure: Upper GI endoscopy Indications: Epigastric abdominal pain, Suspected esophageal reflux Providers: Ramez Hagan MD Referring MD: Ramez Hagan MD Medicines: Monitored Anesthesia Care Patient Profile: This is a 43 year old male. Refer to note in patient chart for documentation of history and physical. Complications: No immediate complications. Estimated blood loss: Minimal. Procedure: Pre-Anesthesia Assessment: - Prior to the procedure, a History and Physical was performed, and patient medications and allergies were reviewed. The patient's tolerance of previous anesthesia was also reviewed. The risks and benefits of the procedure and the sedation options and risks were discussed with the patient. All questions were answered, and informed consent was obtained. Prior Anticoagulants: The patient has taken no previous anticoagulant or antiplatelet agents. After reviewing the risks and benefits, the patient was deemed in satisfactory condition to undergo the procedure. After obtaining informed consent, the endoscope was passed under direct vision. Throughout the procedure, the patient's blood pressure, pulse, and oxygen saturations were monitored continuously. The gastroscope was introduced through the mouth, and advanced to the second part of duodenum. The upper GI endoscopy was accomplished without difficulty. The patient tolerated the procedure well. Scope In: 8:34:23 AM Scope Out: 8:40:02 AM Total Procedure Duration Time 0 hours 5 minutes 39 seconds Findings: Scattered mild inflammation characterized by linear erosions was found in the gastric antrum. Biopsies were taken with a cold forceps for Helicobacter pylori testing. Biopsies were taken with a cold forceps for histology. The Z-line was variable. Biopsies were taken with a cold forceps for histology. The exam was otherwise without abnormality. Impression: - Gastritis. Biopsied. - Z-line variable. Biopsied. - The examination was otherwise normal. Recommendation: - Patient has a contact number available for emergencies. The signs and symptoms of potential delayed complications were discussed with the patient. Return to normal activities tomorrow. Written discharge instructions were provided to the patient. - Resume previous diet. - Continue present medications. - Await pathology results. - Discharge patient to home. Procedure Code(s): --- Professional --- 65389, Esophagogastroduodenoscopy, flexible, transoral; with biopsy, single or multiple Diagnosis Code(s): --- Professional --- K29.70, Gastritis, unspecified, without bleeding K22.8, Other specified diseases of esophagus R10.13, Epigastric pain CPT copyright 2017 [employer]. All rights reserved. The codes documented in this report are preliminary and upon forester silviculture review may be revised to meet current compliance requirements. Ramez Hagan MD 09/19/2018 8:54:56 AM This report has been signed electronically. Number of Addenda: 0 Note Initiated On: 09/19/2018 8:24 AM 09/19/18854 Date Ramez Hagan MD Cosigner Signature: Date (if indicated) CC: Ramez Hagan MD; Francisco Ennis MD Date Dictated: 09/19/18823 Date Transcribed: Shaker Tender: JOANN Signed IMMUNOHISTOCHEMISTRY Observed: 09/19/2018 Status: F Source: [place] 8:45 AM [facility] REPOSITORY Patient: JEIMY MCCOLLUM : 1975 (43/M) Acct Num: [id number] Phys: Bentley LARSON,Ramez Unit Num: [id number] Loc: EN Specimen: [id number] Received: 09/19/181323 Spec Type: IMMUNO TISSUES 1 TISSUES: A. Stomach, NOS SPECIMEN INFORMATION: Tissue Source: A - Antral biopsy Clinical Info: Abdominal pain, nausea Specimen Number: [id number] CPT code: 89622 METHODOLOGY: Deparaffinized sections of prefer/formalin-fixed tissue or PAP/DQ stained slides are incubated with monoclonal/polyclonal antibodies/oligonucleotide probes. Localization is made via biotin free immunoperoxidase method. Appropriate controls are performed and reacted as expected. Results on target cell population are indicated in the following table: RESULTS: ANTIBODY / CLONE RESULT Block A H Pylori (polyclonal) negative These tests were developed and their performance characteristics determined by [facility]. They may not have been cleared or approved by the U.S. Food and Drug Administration. The FDA has determined that such clearance or approval is not necessary. INTERPRETATION: A. Antral biopsy: Negative for Helicobacter pylori organisms. AM:xin 09/22/18 PHYSICIAN AND INSTITUTION [address] [address] Signed [facility] 09/22/18 <signature on file> Performed By: #### PIMM #### [facility] [address] [place] [address]. [place], [place], [id number] GASTRIC BIOPSY Observed: 09/19/2018 Status: F Source: [place] 12:00 [facility] REPOSITORY Patient: JEIMY MCCOLLUM : 1975 (43/M) Acct Num: [id number] Phys: Bentley LARSON,Ramez Unit Num: [id number] Loc: EN Specimen: [id number] Received: 09/19/18 - 1044 Spec Type: Gastric Bx TISSUES 1 TISSUES: A. Gastric mucous membrane B. Gastric mucous membrane COMMENT A. The results of immunohistochemistry for Helicobacter pylori will be reported separately ([id number]). GROSS DESCRIPTION A - Received in fixative is one container labeled with the patient's name and designated antral biopsy. The specimen consists of two irregular fragments of light humphrey soft tissue that in aggregate measure 0.7 x 0.7 x 0.2 cm. The specimen is totally submitted in one cassette. B - Received in fixative is one container labeled with the patient's name and designated GE junction biopsy. The specimen consists of multiple irregular fragments of light humphrey soft tissue that in aggregate measure 1 x 0.3 x 0.2 cm. The specimen is totally submitted in one cassette. / RY:xin 09/19/18 TC:3 CPT: 60084 x2 HEADER OPERATION: EGD (MAC) PRE-OP DIAGNOSIS: Abdominal pain, nausea TISSUE SUBMITTED: A - Antral biopsy for H. pylori and pathology, B - GE junction biopsy MICROSCOPIC DESCRIPTION Slides are reviewed. MICROSCOPIC DIAGNOSIS A. Gastric antrum, biopsy: Mild chronic gastritis. B. Gastroesophageal junction, biopsy: Mild chronic inflammation. AM:xin 09/22/18 Signed [facility] 09/22/18 <signature on file> Performed By: #### PGASB #### [facility] [address] [place], [place], [address] SURGERY VISIT REPORT Observed: 09/09/2018 Status: F Source: [place] 9:34 AM [facility] REPOSITORY [facility] [address] [place] [address] OFFICE VISIT Date of Service: 09/09/18 MR#: [id number] Acct: [id number] Name: JEIMY MCCOLLUM Rep #: [id number] : 1975 Provider: Ramez Hagan MD Age/Sex: 43/M Location: [facility] Status: Signed Intake Vital Signs09/09/18 Height 6 ft 4 in 09/09/18 Weight: 305 lb Intake Visit Reasons: Abdominal wants to discuss having a upper scope Chief Complaint: Chest pain Nuclear Equipment Operator Required: No Is patient in pain?: Yes (RUQ/ Right Flank) Pain scale (1- 10): 3 Allergies flaxseed Allergy (Verified 09/09/18 09:17) Itching spinach Allergy (Verified 09/09/18 09:17) Itching Medications Lehighton-3 Fatty Acids [Fish Oil] 500 mg PO DAILY 07/09/17 [History Confirmed 09/09/18] Multivitamin [Multiple Vitamins] 1 tab PO DAILY 08/20/18 [History Confirmed 09/09/18] clarithromycin 500 mg tablet 500 mg PO ONCE tab 09/09/18 [History Confirmed 09/09/18] omeprazole 40 mg capsule,delayed release 40 mg PO BID cap 09/09/18 [History Confirmed 09/09/18] sucralfate 1 gram tablet 1 g PO QACHS 09/09/18 [History Confirmed 09/09/18] [facility] Medical History Black tarry stools (Acute) Hemorrhoids (Acute) Diarrhea (Acute) Nausea (Acute) Abdominal pain (Acute) SOB (shortness of breath) (Acute) Sleep apnea (Acute) Arthritis (Acute) Chest pain (Acute) BMI 39.0-39.9,adult (Chronic) GERD (gastroesophageal reflux disease) (Chronic) Anxiety disorder (Chronic) Surgical History Hx of varicose vein stripping (Acute) History of tonsillectomy and adenoidectomy (Acute) History of ankle surgery (Acute) Hx of sinus surgery (Acute) Family History Mother Arthritis Diabetes Heart disease Hypertension High cholesterol Cancer Skin cancer Father Heart disease Hypertension High cholesterol Social History Smoking Status: Never smoker alcohol intake: never substance use type: does not use caffeine: Yes what type of physical activity do you participate in: running, bicycling, weight training frequency: 5-6 times per week seatbelt use: always HPI HPI HPI: JEIMY MCCOLLUM, is a 43 M who presents to the office today for right upper quadrant pain. The patient reports that for about a month he has had right upper quadrant pain and burning chest pain that is awoken him from sleep. He was recently admitted to the hospital for cardiac workup which was normal. The patient reports that eating does make it worse. He has also been having diarrhea. He says that coffee especially makes his diarrhea worse. He has been on a PPI and Carafate for about 3 weeks. ROS General General: No weight change or fatigue Musc Musculoskeletal: Yes back problems and arthritis Cardio Cardiovascular: No murmur, pacemaker, heart disease, atrial fibrillation, high blood pressure, heart attack, heart stent, palpitations, shortness of breat with exertion or chest pain Psych Psychiatric: Yes anxiety; no depression Resp Respiratory: Yes shortness of breath, Yes sleep apnea, No cough, No COPD, No asthma, No emphysema, No wheezing Gastro Gastrointestinal: Yes abdominal pain, Yes nausea or vomiting, Yes diarrhea, No constipation, No blood in stool, Yes acid reflux, Yes hemorrhoids, No ulcers, No gallbladder problem, No black,tarry stools Rodrick Hematologic: No blood thinners Exam Const General: cooperative, anxious Orientation: alert, oriented x3 Resp Effort AND Inspection: normal respiratory effort Auscultation: clear to auscultation bilaterally Cardio Rate: regular rate Rhythm: regular rhythm Heart Sounds: no murmurs GI Inspection: non-distended Palpation: soft, tender (Diffuse mild tenderness) Assessment AND Plan Problems 1. Right upper quadrant abdominal pain R10.11 Plan 1. The patient is having right upper quadrant pain for about a month now. He also reports waking up with burning in his chest. He has been on a PPI and Carafate for 3 weeks with no improvement. He had a heart workup done while he was admitted to the hospital this month which was normal. He has had an ultrasound of his gallbladder which was normal as well as a HIDA scan which showed good ejection fraction. 2. I believe the patient's symptoms are consistent with peptic ulcer disease. I will perform an EGD to check for gastritis and check for H. pylori. 3. I explained endoscopy in detail to the patient. I explained the risks including but not limited to stroke or heart attack with anesthesia, perforation of the GI tract, bleeding, infection. I explained that any of these could necessitate further emergency surgery. The patient understands and all questions were answered sufficiently. The patient wishes to proceed with procedure. Ramez Hagan MD Pager: [facility] [address] [place] [address], [address] [place] [address] Office: Orders Orders: Coding Level of Care Code Off vis,new,level 3 Diagnoses Right upper quadrant abdominal pain R10.11 09/09/18 0934 <Electronically signed by Ramez Hagan MD> Date Ramez Hagan MD Cosigner Signature: Date (if applicable) CC: Francisco Ennis MD HEPATOBILLIARY IMG Observed: 09/01/2018 Status: F Source: [place] W/PHARM INT 11:57 AM [facility] REPOSITORY [facility] Imaging Services [address] [place] [address] Hepatobilliary Img w/Pharm Int MR#: [id number] Acct: [id number] Name: JEIMY MCCOLLUM Rep #: [id number] : 1975 M 43 From: Johnny Chadwick DO PCP: Francisco Ennis MD, Chi Status: REG CLI Study: Hepatobilliary Img w/Pharm Int Date of Exam: 09/01/18 Exam# [id number] Ordering Dr: Francisco Ennis MD CLINICAL: 43-year-old female with reported history of right upper quadrant abdominal pain. RADIONUCLIDE HEPATOBILIARY SCINTIGRAPHY COMPARISON: Abdominal ultrasound report 08/28/2018 FINDINGS: Following the intravenous administration of 5.1 mCi of 99m Tc Mebrofenin, hepatobiliary images reveal: 1. Relatively prompt and homogeneous radiopharmaceutical concentration is noted by a normal sized liver. No parenchymal defects are identified. 2. Gallbladder activity is identified at 10 minutes post radiopharmaceutical administration. 3. Intestinal tract is not visualized during 60 minutes of sequential image acquisition. Small bowel is defined following the administration of the fatty meal. 4. Washout of the radiopharmaceutical by the hepatic parenchyma appears qualitatively normal. The patient was administered a fatty meal (8 ounces Boost). The post fatty meal ingestion gallbladder ejection fraction calculated at 60 minutes was noted to be 54.0 % (normal greater than 30%). NM/Hepatobilliary Img w/Pharm Int IMPRESSION: 1. NORMAL 99m Tc Mebrofenin hepatobiliary imaging examination with fatty meal ingestion. A. A gallbladder ejection fraction calculated to be greater than 30% following the administration of an ingested fatty meal makes the probability of functional hepatobiliary disease (gallbladder and/or sphincter of Oddi dyskinesia) and/or organic hepatobiliary disease (chronic acalculous cholecystitis and/or cystic duct syndrome) to be low. (Tigre and Asif, J Nucl Med 43: 1603, 2002). Electronically Signed: Johnny Chadwick DO at 23:55 EST Tel , Service support , CC: Francisco Ennis MD Shaker Tender: Signed ABDOMEN LIMITED Observed: 08/28/2018 Status: F Source: [place] 9:23 AM [facility] REPOSITORY [facility] Imaging Services [address] [place] [address] Abdomen Limited MR#: [id number] Acct: [id number] Name: JEIMY MCCOLLUM Rep #: [id number] : 1975 M 43 From: Daren Clayton MD PCP: Francisco Ennis MD, Chi Status: REG CLI Study: Abdomen Limited Date of Exam: 08/28/18 Exam# [id number] Ordering Dr: Francisco Ennis MD STUDY: ABDOMINAL ULTRASOUND - RIGHT UPPER QUADRANT REASON FOR VISIT: Male, 43 years old. Possible gallstones. TECHNIQUE: Ultrasound evaluation of the right upper quadrant was performed with real-time and static carcamo-scale imaging. TECHNICAL QUALITY: Adequate. COMPARISON: None. FINDINGS: Liver: The liver measures 15.3 cm. There is increased echogenicity consistent with fatty infiltration. The bile ducts are within normal limits. There is hepatic color flow. The direction of portal flow is hepatopetal. There is no demonstrated mass lesion. Gallbladder: Normal distended gallbladder. The gallbladder wall measures 1.8 mm. There is a negative sonographic Eaton's sign. There is no pericholecystic fluid. There are no gallstones. Common Bile Duct (C.B.D.): The common bile duct measures 2.8 mm. Pancreas: Normal size of the head, body of the pancreas. The tail portion is obscured due to overlying bowel gas. There is normal echogenicity of the pancreas. There is no demonstrated pancreatic mass or cyst. Right Kidney: Normal size of the right kidney. The right kidney measures 13.8 cm x 6.2 cm x 5.2 cm. Normal renal cortex. The right cortex measures 1.3 cm. There is no demonstrated renal mass or cyst. There is no right hydronephrosis. US/Abdomen Limited IMPRESSION: Fatty infiltration of the liver. Electronically Signed: Daren Clayton MD at 13:48 EST Tel [phone], Service support , CC: Francisco Ennis MD Shaker Tender: Signed CBC W/DIFF, AUTOMATED Collected: 08/27/2018 Status: F Source: [place] 3:09 PM [facility] REPOSITORY TYPE CODE TESTS RESULT OUT OF RANGE REFERENCE UNITS LAB L100.1000 4.4-11.0 K/mm3 Normal WBC 7.4 LAB L100.1200 4.6-6.2 M/mm3 Normal RBC 5.20 LAB L100.1300 13.0-16.5 g/dl Normal HGB 14.9 LAB L100.1400 40-54 % Normal HCT 43.9 LAB L100.1500 80-94 fL Normal MCV 84.4 LAB L100.1600 27.0-32.0 pg Normal MCH 28.7 LAB L100.1700 32-36 g/gl Normal MCHC 33.9 LAB L100.1810 11.6-14.6 % Normal RDW CV 13.2 LAB L100.1820 35.1-43.9 fl Normal RDW SD 40.3 LAB L100.1900 150-450 K/mm3 Normal PLT 373 LAB L100.2000 6.2-12.0 fl Normal MPV 9.7 LAB L100.2100 47-70 % Normal NEUT% 62.8 LAB L100.2200 19-41 % Normal LY% 26.5 LAB L100.2300 0-10 % Normal MONO% 8.4 LAB L100.2400 0-5 % Normal EO% 1.6 LAB L100.2500 0-1 % Normal BASO% 0.3 LAB L100.2550 0.0-0.9 % Normal IM GRAN % 0.400 Result Comment: IG% - Immature Granulocytes (promyelocytes, myelocytes and metamyelocytes) > 1% indicates that a LEFT SHIFT is Present. LAB L100.2620 2.0-7.7 X10 3/uL Normal Absolute Neut 4.6 LAB L100.2720 0.83-4.51 X10 3/ul Normal Absolute Lymph 1.96 Performed By: #### L100.0100 #### [facility] [address] [place], [address] COMPREHENSIVE METABOLIC Collected: 08/27/2018 Status: F Source: [place] 3:09 PM [facility] REPOSITORY TYPE CODE TESTS RESULT OUT OF RANGE REFERENCE UNITS LAB L501.0100 74-106 mg/dL Normal GLU 97 Result Comment: Please note revised GLUCOSE reference range effective 2017. LAB L501.1000 7-18 mg/dL Normal BUN 14 LAB L501.1100 0.70-1.30 mg/dL Normal CREAT,SERUM 1.08 Result Comment: The validity of the calculated GFR AND GFRAA in patients over 70 years has not been determined. Clinical correlation is essential. LAB L501.1110 >60 mL/min Normal EST GFR 80 Result Comment: Non- GFR Calc LAB L501.1115 >60 mL/min Normal EST GFR - AA 97 Result Comment: GFR Calc LAB L501.1300 10-20 RATIO Normal BUN/CRE 13.0 LAB L501.1500 6.4-8.2 g/dL T Normal PROT 7.8 LAB L501.1800 3.2-5.0 g/dL Normal ALB 3.9 LAB L501.1950 2.2-4.2 g/dL Normal GLOB 3.9 LAB L501.2000 0.9-2.4 RATIO Normal A/G 1.0 LAB L501.2200 8.5-10.1 mg/dL CA Normal 8.9 LAB L501.4100 15-37 U/L Normal AST 22 LAB L501.4305 45-117 U/L Normal ALK P 66 LAB L501.4405 16-61 U/L Normal ALT 52 LAB L501.4600 0.20-1.00 mg/dL T Normal BILI 1.00 LAB L501.5300 136-145 mmol/L NA Normal 141 LAB L501.5600 3.5-5.1 mmol/L K Normal 4.1 LAB L501.5900 98-107 mmol/L CL Normal 105 LAB L501.6100 21.0-32.0 mmol/L Normal CO2 27.0 LAB L501.6200 5-15 Normal GAP 9 Performed By: #### L500.4050, L501.2400, L501.2450 #### [facility] [address] [place], [address] AMYLASE Collected: 08/27/2018 Status: F Source: [place] 3:09 PM [facility] REPOSITORY TYPE CODE TESTS RESULT OUT OF RANGE REFERENCE UNITS LAB L501.2400 25-115 U/L Low KATTY 19 Performed By: #### L500.4050, L501.2400, L501.2450 #### [facility] [address] [place], [address] LIPASE Collected: 08/27/2018 Status: F Source: [place] 3:09 PM [facility] REPOSITORY TYPE CODE TESTS RESULT OUT OF RANGE REFERENCE UNITS LAB L501.2450 73-393 U/L Normal LIPASE 91 Performed By: #### L500.4050, L501.2400, L501.2450 #### [facility] [address] [place], [address] 12 LEAD ELECTROCARDIOGRAM Observed: 08/25/2018 Status: F Source: [place] 2:57 PM [facility] REPOSITORY [facility] Cardiovascular Services [address] [place] [address] 12 Lead EKG 08/21/18 0535 MR#: [id number] Acct: [id number] Name: JEIMY MCCOLLUM Rep #: [id number] : 1975 43 From: Jack Overton MD Attending Dr: Schuyler Ramos MD Status: DIS JAYESH Ordering Dr: Schuyler Ramos MD Date: 08/21/18 Location: [facility] Sex: M C Admitted: 08/20/18 Test Reason : AM Blood Pressure : / mmHG Vent. Rate : 067 BPM Atrial Rate : 067 BPM P-R Int : 206 ms QRS Dur : 092 ms QT Int : 416 ms P-R-T Axes : 020 038 -41 degrees QTc Int : 439 ms Normal sinus rhythm T wave abnormality, consider inferior ischemia T wave abnormality, consider anterolateral ischemia Abnormal ECG When compared with ECG of 20-AUG-2018 09:12, MANUAL COMPARISON REQUIRED, DATA IS UNCONFIRMED Confirmed by JACK OVERTON ([id number]), industrial editor RAFAEL COURTNEY ([id number]) on 08/25/2018 2:57:11 PM Referred By: RONALDO Confirmed By:JACK OVERTON 08/25/18 1457 Date Jack Overton MD CC: Schuyler Ramos MD; Francisco Ennis MD Signed 12 LEAD ELECTROCARDIOGRAM Observed: 08/21/2018 Status: F Source: [place] 3:45 PM [facility] REPOSITORY [facility] Cardiovascular Services [address] [place], [place] [address] [address] 12 Lead EKG 08/20/18 0912 MR#: [id number] Acct: [id number] Name: JEIMY MCCOLLUM Rep #: [id number] : 1975 43 From: Nithin Cabello MD Attending Dr: Schuyler Ramos MD Status: DIS JAYESH Ordering Dr: Rubin Myers MD Date: 08/20/18 Location: [facility] Sex: M C Admitted: 08/20/18 Test Reason : CHEST PAIN Blood Pressure : / mmHG Vent. Rate : 079 BPM Atrial Rate : 079 BPM P-R Int : 196 ms QRS Dur : 092 ms QT Int : 390 ms P-R-T Axes : 027 071 -28 degrees QTc Int : 447 ms Normal sinus rhythm T wave abnormality, consider inferolateral ischemia Abnormal ECG Confirmed by NITHIN CABELLO MD ([id number]), industrial editor RAFAEL COURTNEY ([id number]) on 08/21/2018 3:44:34 PM Referred By: YNES Confirmed By:NITHIN CABELLO MD 08/21/18 1544 Date Nithin Cabello MD CC: Schuyler Ramos MD; Rubin Myers MD; Francisco Ennis MD Signed DISCHARGE SUMMARY Observed: 08/21/2018 Status: F Source: [place] 10:28 AM [facility] REPOSITORY [facility] Medical Records Department [address] [place] [address] Discharge Summary 08/21/18 1023 MR#: [id number] Acct: [id number] Name: JEIMY MCCOLLUM Rep #: [id number] : 1975 43 From: Schuyler Ramos MD PCP: Raymon LARSON,Francisco Florez Status: ADM JAYESH Y Location: [place] [address] Discharge Date and Diagnosis - Problem List Patient Problems: Active and Suspected Problems Chest pain (Acute) Date of Admission: 08/20/18 Date of Discharge: 08/21/18 - Primary Discharge Diagnosis Active and Suspected Problems Chest pain (Acute) - Secondary Discharge Diagnosis Chronic Problems BMI 39.0-39.9,adult (Chronic) GERD (gastroesophageal reflux disease) (Chronic) Anxiety disorder (Chronic) Hospital Course and Treatment Imaging Results: 08/21/18 05:55 Nuclear Stress Test - Treadmil [NM] AM (NON MEDS) Summary of Care Provided: Patient is a 43-year-old gentleman presenting with chest pain 1. Chest pain patient has been admitted dated bed: Rule out myocardial infarction with serial cardiac enzymes patient underwent a nuclear stress test which was negative for stress-induced ischemia. Patient however had a hypertensive reaction during the stress test. He was informed of this instructed to follow-up with PCP to keep a close eye on his blood pressure 2. Obesity with BMI of 39.7 lifestyle modification including weight loss advised 3. Insomnia patient uses trazodone at night 4. Anxiety disorder 5. GERD 6. DVT prophylaxis SC Lovenox Patient Problems: Active and Suspected Problems Chest pain (Acute) - Physical Exam Vital Signs Temp Pulse Resp BP Pulse Ox 99 F 78 14 121/71 H 97 08/21/18 09:14 08/21/18 09:14 08/21/18 09:14 08/21/18 09:14 08/21/18 09:14 Oxygen Flow Rate (L/min) 2 Oxygen Delivery Method Room Air Weight: 147.9 kg Body Mass Index (BMI) 39.6 Intake and Output for Last 24 Hours Intake Total 1280 / 1280 Balance 1280 / 1280 Laboratory Tests Past 24 Hrs Discharge Diet: No Restrictions Home Medications: Medications to take at Discharge traZODone [Desyrel] 100 mg PO QHS PRN 06/29/16 Lehighton-3 Fatty Acids [Fish Oil] 500 mg PO DAILY 07/09/17 Multivitamin [Multiple Vitamins] 1 tab PO DAILY 08/20/18 Primary Care Physician: Francisco Ennis Chi, MD [Primary Care Provider] - Patient Instructions: ED Chest Pain NonCardiac Disposition: Home Minutes spent on discharge:: 35 Patient Condition:: Stable Medical Necessity - Tobacco Use Smoking Status: Never smoker Meaningful Use Info Meaningful Use Diagnoses (Choose all that apply): None applicable Code Visit OBSV E AND M: 50289 Observation care discharge 08/21/18 1028 <Electronically signed by Schuyler Ramos MD> Date Schuyler Ramos MD Cosigner Signature (if applicable): Date CC: Schuyler Ramos MD; Francisco Ennis MD Signed DISCHARGE INSTRUCTION Observed: 08/21/2018 Status: F Source: [place] 10:23 AM [facility] REPOSITORY [facility] Medical Records Department [address] [place] [address] Instructions for Home/Discharge Instructions 08/21/18 1022 MR#: [id number] Acct: [id number] Name: MCCOLLUMJEIMY Gail Rep #: [id number] : 1975 43 From: Schuyler Ramos MD PCP: Francisco Ennis MD, Chi Status: ADM JAYESH - Discharge Diagnoses Current Active Problems: Current Active and Chronic Problems Chest pain (Acute) BMI 39.0-39.9,adult (Chronic) GERD (gastroesophageal reflux disease) (Chronic) Anxiety disorder (Chronic) You will use the following diet at home:: No restrictions Instructions: ED Chest Pain NonCardiac Allergies/Adverse Reactions: Allergies flaxseed Allergy (Verified 11/28/17 01:20) Itching spinach Allergy (Verified 08/20/18 10:36) Itching Medications to take at Discharge traZODone [Desyrel] 100 mg PO QHS PRN 06/29/16 Lehighton-3 Fatty Acids [Fish Oil] 500 mg PO DAILY 07/09/17 Multivitamin [Multiple Vitamins] 1 tab PO DAILY 08/20/18 Primary Care Physician: Francisco Ennis Chi, MD [Primary Care Provider] - Test Results: Test results from this visit will be discussed in further detail at your follow-up appointment, if applicable. Proposed Discharge Date: 08/21/18 08/21/18 1023 <Electronically signed by Schuyler Ramos MD> Date Schuyler Ramos MD CC: Francisco Ennis MD STRESS REPORT Observed: 08/21/2018 Status: F Source: [place] 9:53 AM [facility] REPOSITORY [facility] Cardiovascular Services [address] [place] [address] MR#: [id number] Acct: [id number] Name: JEIMY MCCOLLUM Rep #: [id number] : 1975 43 From: Real Candelaria MD Primary Care: Francisco Ennis MD, Chi Status: ADM JAYESH Ordering Dr: [place]: Gail Pierce Stress Test Report Date: 08/21/2018 Procedure: Exercise tolerance test/imaging study Indications: Chest pain; abnormal ECG Consent: Per the patient Procedure: The patient exercised on a Tang protocol for 9 minutes completing Stage III achieving a peak heart rate of 164 bpm (91 % predicted maximal heart rate) with a peak blood pressure 210/88 mmHg and a peak MET capacity of 10 METs. The baseline ECG demonstrated normal sinus rhythm; T wave abnormality. The peak exercise ECG demonstrated continued T wave abnormality. There were no cardiac dysrhythmias pretest, during exercise, or recovery. The blood pressure response was considered a normal resting blood pressure with an exaggerated response. The functional capacity was considered good. There was no complaint of chest discomfort during exercise or recovery. The examination was discontinued secondary to dyspnea. Impression: 1. Technically adequate (percent predicted maximal heart rate greater than 85%) exercise tolerance test 2. Peak exercise ECG continued T wave abnormality 3. There were no cardiac dysrhythmias pretest, during exercise, or recovery 4. Nuclear images pending Myocardial perfusion imaging study: Technique: The patient was injected with 14.6 mCi of technetium 99m Cardiolite and subsequently rest SPECT Cardiolite nuclear imaging was obtained in the horizontal long, vertical long, and short axis views. The patient exercised on a Tang protocol for 9 minutes completing Stage III achieving a peak heart rate of 164 bpm (91 % predicted maximal heart rate) with a peak blood pressure 210/88 mmHg and a peak MET capacity of 10 METs. The patient was injected with 44.9 mCi of technetium 99m Cardiolite and subsequently stress SPECT Cardiolite nuclear imaging was obtained in the horizontal long, vertical long, and short axis views. A gated Cardiolite study at peak stress was obtained. Interpretation: Rest and stress SPECT Cardiolite nuclear imaging status post realignment, normalization, and attenuation correction, demonstrates the appearance of relative uniform tracer uptake and myocardial perfusion appearing within normal limits. There is end systolic thickening and brightening. The gated Cardiolite study demonstrates myocardial thickening and inward wall motion. The reported LVEF is 61 %. Impression: 1. Rest and stress SPECT Cardiolite nuclear imaging demonstrate relative uniform tracer uptake and myocardial perfusion appearing within normal limits. 2. The gated Cardiolite study reports an LVEF of 61 %. This note was generated with [employer] software. It may contain incorrect words, spelling, and punctuation that were not noted in checking the note before signing. 08/21/1853 <Electronically signed by Real Candelaria MD> Date Real Candelaria MD CC: Schuyler Ramos MD; Francisco Ennis MD Date Dictated: 08/21/18946 Date Transcribed: 08/21/18946 Shaker Tender: PM Signed CBC-COMPLETE BLOOD CNT Collected: 08/21/2018 Status: F Source: [place] NO DIFF 5:10 AM [facility] REPOSITORY TYPE CODE TESTS RESULT OUT OF RANGE REFERENCE UNITS LAB L100.1000 4.4-11.0 K/mm3 Normal WBC 6.0 LAB L100.1200 4.6-6.2 M/mm3 Normal RBC 4.95 LAB L100.1300 13.0-16.5 g/dl Normal HGB 14.3 LAB L100.1400 40-54 % Normal HCT 42.0 LAB L100.1500 80-94 fL Normal MCV 84.8 LAB L100.1600 27.0-32.0 pg Normal MCH 28.9 LAB L100.1700 32-36 g/gl Normal MCHC 34.0 LAB L100.1810 11.6-14.6 % Normal RDW CV 13.3 LAB L100.1820 35.1-43.9 fl Normal RDW SD 41.0 LAB L100.1900 150-450 K/mm3 Normal PLT 273 LAB L100.2000 6.2-12.0 fl Normal MPV 9.1 Performed By: #### L100.0500 #### [facility] [address] [place], [place], [address] BASIC METABOLIC Collected: 08/21/2018 Status: F Source: [place] PROFILE (BMP) 5:10 AM [facility] REPOSITORY TYPE CODE TESTS RESULT OUT OF RANGE REFERENCE UNITS LAB L501.0100 74-106 mg/dL Normal GLU 98 Result Comment: Please note revised GLUCOSE reference range effective 2017. LAB L501.1000 7-18 mg/dL Normal BUN 12 LAB L501.1100 0.70-1.30 mg/dL Normal CREAT,SERUM 0.95 Result Comment: The validity of the calculated GFR AND GFRAA in patients over 70 years has not been determined. Clinical correlation is essential. LAB L501.1110 >60 mL/min Normal EST GFR 93 Result Comment: Non- GFR Calc LAB L501.1115 >60 mL/min Normal EST GFR - AA 112 Result Comment: GFR Calc LAB L501.1255 ml/min Normal Estimated CRCL 125.63 LAB L501.1300 10-20 RATIO BUN/CRE Normal 12.6 LAB L501.2200 8.5-10 mg/dL .1 CA Normal 8.5 LAB L501.5300 136-14 mmol/L 5 NA Normal 141 LAB L501.5600 3.5-5. mmol/L 1 K Normal 4.1 LAB L501.5900 98-107 mmol/L High CL 108 LAB L501.6100 21.0-3 mmol/L 2.0 CO2 Normal 26.0 LAB L501.6200 5-15 GAP Normal 7 Performed By: #### L500.2500, L500.4100, L501.9520 #### [facility] [address] [facility] [place], [address] LIPID PROFILE Collected: 08/21/2018 Status: F Source: [place] 5:10 AM [facility] REPOSITORY TYPE CODE TESTS RESULT OUT OF RANGE REFERENCE UNITS LAB L501.4900 200 mg/dL Normal CHOL 155 Result Comment: <200 mg/dL Desirable 200-240 mg/dL Borderline >240 mg/dL High Risk LAB L501.5000 mg/dL Normal TRIG 186 Result Comment: The drugs N-Acetylcysteine and Metamizole may falsely depress this assay. Serum Triglycerides Reference Interval Normal <150 mg/dL Borderline high 150 - 199 mg/dL High 200 - 499 mg/dL Very High > or = 500 mg/dL LAB L501.6400 mg/dL Low HDL 32 Result Comment: The drugs N-Acetylcysteine and Metamizole may falsely depress this assay. Reference Range HDL <40 mg/dL Low HDL Cholesterol HDL >or= 60 mg/dL High HDL Cholesterol LAB L501.6500 0-130 mg/dL Normal LDL 86 LAB L501.6600 5-40 mg/dL Normal VLDL 37 Performed By: #### L500.2500, L500.4100, L501.9520 #### [facility] [address] [place], [address] THYROID STIM HORMONE Collected: 08/21/2018 Status: F Source: [place] (TSH) 5:10 AM [facility] REPOSITORY TYPE CODE TESTS RESULT OUT OF RANGE REFERENCE UNITS LAB L501.9520 0.358-3.74 uIU/mL Normal TSH 2.65 Performed By: #### L500.2500, L500.4100, L501.9520 #### [facility] [address] [place], [address] PROTHROMBIN TIME W/INR Collected: 08/21/2018 Status: F Source: [place] 5:10 AM [facility] REPOSITORY TYPE CODE TESTS RESULT OUT OF RANGE REFERENCE UNITS LAB L300.4150 11.7-14.9 SECONDS Normal PROTIME 13.1 LAB L300.4200 Normal INR 1.0 Performed By: #### L300.3900, L300.4310 #### [facility] [address] [place], [address] PARTIAL THROMBOPLAST Collected: 08/21/2018 Status: F Source: [place] TIME 5:10 AM [facility] REPOSITORY TYPE CODE TESTS RESULT OUT OF RANGE REFERENCE UNITS LAB L300.4310 24.1-36.2 Seconds Normal PTT 30.5 Performed By: #### L300.3900, L300.4310 #### [facility] [address] [place], [address] EMERGENCY DEPARTMENT Observed: 08/20/2018 Status: F Source: [place] SUMMARY 3:07 PM [facility] REPOSITORY [facility] Medical Records Department [address] [place] [address] Emergency Department Summary 08/20/18 0920 MR#: [id number] Acct: [id number] Name: JEIMY MCCOLLUM Rep #: [id number] : 1975 43 From: Rubin Myers MD PCP: Francisco Ennis MD, Chi Status: ADM JAYESH - ER Visit Summary Date of Service: 08/20/18 Chief Complaint: Chest pain History of Present Illness: The patient is a 43 M past medical history of anxiety and Nexium. He does not believe he is ever had a stress test or heart cath. No family history of cardiac disease. He quit smoking but he used to smoke cigars occasionally. States he worked out yesterday and had 4 miles on the [place]. This morning when he awoke he had chest heaviness or tightness. Since about a 5-6 out of 10. He also states when he walks he feels like he cannot catch a deep breath. No pleuritic chest pain. No DVT or PE history. No calf pain or swelling. No hemoptysis. Physical Examination: Well-appearing middle-age male. Vital signs are stable. He is afebrile. His pulse ox is 90% on room air. Initial blood pressure is elevated at 182/104. H EENT exam unremarkable. Neck nontender. Lungs clear to auscultation bilaterally. Heart regular rate and rhythm rate about 80. No murmur appreciated. Chest wall no significant tenderness. Abdomen soft nontender. Normal bowel sounds. No peritoneal signs. Patient is moving all 4 extremities. 5 out of 5 classified advertising clerk strength. Dorsi plantar flexion intact. Calves are nontender without edema nor cords. Equal symmetrical radial pulses. Neurologically is awake and alert with no focal motor deficits. Test Results: Patient's initial EKG shows a sinus rhythm a rate of 79 he does have inverted T waves in Leads 2, 3 and aVF. Also in V4, 5 and 6. No old EKG for comparison. CBC normal. Chemistries normal. Troponin normal. Chest x-ray no acute abnormality read both by myself and the radiologist. Normal cardiac silhouette and mediastinum. Emergency Department Course and Treatment: She will undergo a cardiac workup. He will receive p.o. aspirin and sublingual nitro. Treatment Plan: Repeat exam the patient is doing well at 09 51. He is received sublingual nitro without any. I did go over all test results with both he and his . He understands the need for admission and further evaluation. I have the hospitalist on page. Disposition: Admission Impression: Acute chest pain of uncertain etiology with an abnormal EKG This note was generated with [employer] dictation software. It may contain incorrect words, spelling, and punctuation that were not noted in review of the chart prior to signing ED Disposition - Plan for ED Patient: Chief Complaint: Chest Pain Referrals: Francisco Ennis Chi, MD [Primary Care Provider] - What to do if you have Problems For any increased pain, shortness of breath, bleeding, nausea or vomiting, chest pain, or any unexpected problems, contact your Primary Care Provider. Call [employer] [facility] ([phone]) or report to the closest Emergency Room. Call 911 if necessary. 08/20/18 8334 <Electronically signed by Rubin Myers MD> Date Rubin Myers MD Cosigner Signature (If Indicated): Date CC: Francisco Ennis MD TROPONIN-I Collected: 08/20/2018 Status: F Source: [place] 2:54 PM [facility] REPOSITORY Order Comment: 'TROP' Serial specimen #1, #2 or #3: 3 TYPE CODE TESTS RESULT OUT OF RANGE REFERENCE UNITS LAB L501.4010 <0.045 ng/mL Normal < 0.015 TROPONIN-I Result Comment: TROPONIN-I EXPECTED VALUES <0.045 Negative 0.045 - 0.590 Consistent with Cardiac Damage > OR = 0.600 Critical Value Not every elevated troponin is indicative of AK. These values should be used with clinical judgement in examining the patient's clinical picture for diagnosis. To establish a diagnosis of AK versus myocardial injury, there must be a demonstrated rise and/or fall in the troponin values, in addition to ischemic symptoms, EKG changes, new regional wall motion abnormality, and/or angiographical evidence. PLEASE NOTE: REFERENCE RANGES EDITED 18 Performed By: #### L501.4010 #### [facility] [address] [facility], [address] ECHOCARDIOGRAM COMPLETE Observed: 08/20/2018 Status: F Source: [place] 1:59 PM [facility] REPOSITORY [facility] Cardiovascular Services [address] [place] [address] Echo Complete W/ Contrast 08/20/18 1242 MR#: [id number] Acct: [id number] Name: JEIMY MCCOLLUM Rep #: [id number] : 1975 43 From: Jack Overton MD Attending Dr: Schuyler Ramos MD Status: ADM JAYESH Ordering Dr: Schuyler Ramos MD Date: 08/20/18 Location: [facility] Sex: M C Admitted: 08/20/18 Reason For Study: Chest Pain Procedure This was a 2D Doppler, Color Flow transthoracic echocardiogram. Exam performed portable in patient room. Left Ventricle Normal size and thickness. The estimated ejection fraction is 65 %. Normal diastology for age. No regional wall motion abnormalities noted. Right Ventricle Normal size and thickness. Normal systolic function. Atria The left atrium is mildly enlarged. Normal right atrium. Normal atrial septum. Mitral Valve The mitral valve is structurally normal. No prolapse or stenosis seen. Trivial mitral valve insufficiency. Tricuspid Valve Normal tricuspid valve. Trivial tricuspid valve insufficiency. Right ventricular systolic pressure estimated to be 19 mmHg. Aortic Valve Trisinus/trileaflet aortic valve. Pulmonic Valve Normal pulmonic valve. Great Vessels Normal aortic root. Normal arch. Normal inferior vena cava. Inferior vena cava collapse with sniff. Pericardium/Pleural No pericardial effusion. Medication Definity0.5ml given slow IV push to enhance endocardial definition. MMode/2D Measurements AND Calculations LVIDd: 4.8 cm IVSd: 1.7 cm Ao root diam: 3.1 cm LVIDs: 2.9 cm LVPWd: 1.6 cm RVDd: 3.3 cm FS: 40.3 % LAV(MOD-bp): 84.1 ml LVAd ap4: 36.6 cm2 SV(MOD-sp4): 77.7 ml LAV(MOD-bp) Indexed: 30.8 ml/m2 EDV(MOD-sp4): 120.1 ml LAV(MOD-sp2): 101.2 ml EDV(sp4-el): 122.1 ml LAV(MOD-sp4): 70.1 ml LVAs ap4: 20.1 cm2 ESV(MOD-sp4): 42.4 ml ESV(sp4-el): 43.4 ml EF(MOD-sp4): 64.7 % EF(sp4-el): 64.5 % SV(sp4-el): 78.7 ml LA A4 area: 22.9 cm2 LA dimension(2D): 4.4 cm RA A4 area: 21.0 cm2 Doppler Measurements AND Calculations MV E max florin: 85.9 cm/sec Lat Peak E' Florin: 14.0 cm/sec Med Peak E' Florin: 10.8 cm/sec MV A max florin: 47.8 cm/sec E/E' lat: 6.1 E/E' med: 8.0 MV E/A: 1.8 Ao V2 max: 122.2 cm/sec LV V1 max: 104.2 cm/sec PA V2 max: 89.7 cm/sec Ao max P.0 mmHg LV V1 max P.3 mmHg Ao V2 mean: 86.4 cm/sec Ao mean P.3 mmHg Ao V2 VTI: 25.4 cm TR max florin: 188.7 cm/sec TR max P.2 mmHg Interpretation Summary The estimated ejection fraction is 65 %. Normal diastology for age. Trivial mitral valve insufficiency. Trivial tricuspid valve insufficiency. Right ventricular systolic pressure estimated to be 19 mmHg. The study was technically difficult. There is no comparison study available. Contrast injection was performed. Ordering Physician: Schuyler Ramos Referring Physician: Francisco Ennis Chi Performed By: Nya Noonan, PERLA, RVT 08/20/18 1359 Date Jack Overton MD CC: Schuyler Ramos MD; Francisco Ennis MD Date Dictated: 08/20/18 1242 Date Transcribed: 08/20/181358 Shaker Tender: Signed HISTORY AND PHYSICAL Observed: 08/20/2018 Status: F Source: [place] EXAM 1:10 PM [facility] REPOSITORY [facility] Medical Records Department [address] [place] [address] History and Physical 08/20/18 1006 MR#: [id number] Acct: [id number] Name: JEIMY MCCOLLUM Rep #: [id number] : 1975 43 From: Schuyler Ramos MD PCP: Francisco Ennis MD, Chi Status: ADM JAYESH Y Location: [place] [address] Problem List (1) Chest pain Status: Acute (2) BMI 39.0-39.9,adult Status: Chronic (3) GERD (gastroesophageal reflux disease) Status: Chronic (4) Anxiety disorder Status: Chronic History of Present Illness Date of Admission: 08/20/18 Chief Complaint: Chest discomfort The patient is a 43 year old M with past medical history is again for GERD, anxiety disorder who presented with chest discomfort. Patient reports weeks of intermittent chest pain. Patient related the pain to exertion on occasions however he did also experience pain was at rest. Patient did experience some nausea on the morning of his admission when his pain was more intense than usual. He denied any shortness of breath. He denies any lightheadedness. He presented to the emergency department initial set of cardiac enzymes Came back negative admitted to a monitored bed for subsequent management Past Medical History Past Medical History (Chronic Problems): Chronic Problems BMI 39.0-39.9,adult (Chronic) GERD (gastroesophageal reflux disease) (Chronic) Anxiety disorder (Chronic) Allergies flaxseed Allergy (Verified 11/28/17 01:20) Itching Home Medications: Ambulatory Orders Medication Instructions Recorded Smoking Status: Never smoker - *Family History Maternal History Items: - - Healthy with no significant medical issues Paternal History Items: Heart Disease - CHF Review of Systems Constitutional: Denies: Anorexia, Chills, Fever, Night Sweats, Weight Change HEENT: Denies: Head Aches, Sinus Congestion, Sinus Drainage Cardiovascular: Reports: Chest Pain. Denies: Orthopnea, Palpitations, Paroxysmal Noc. Dyspnea Respiratory: Denies: Cough, Shortness of breath at rest, Shortness of breath upon exertion, Sputum production Gastrointestinal: Denies: Abdominal Pain, Hematemesis, Hematochezia, Nausea, Melena, Vomiting Genitourinary: Denies: Dysuria, Frequency, Hematuria, Urgency Musculoskeletal: Denies: Joint Pain, Joint Tenderness Skin: Denies: Rash Neurological: Denies: Focal weakness, Numbness, Tingling Psychiatric: Reports: Anxiety. Denies: Homicidal Ideations, Suicidal Ideations Hematologic/ Lymphatic: Denies: Easy Bruising, Easy Bleeding VTE Information - Inpt Only VTE Present on Admission: No VTE Mechan Device Prophylaxis: Knee High KIMBERLY Hose VTE Pharm Prophylaxis ordered?: Yes Patient Problems: Active and Suspected Problems Chest pain (Acute) Objective: GENERAL: cooperative HEENT: Atraumatic; moist oral mucosa EYES; Anicteric, Normal Conjunctiva NECK; supple, normal thyroid, no distended JVD. RESPIRATORY: Diminished to auscultation bilaterally, CARDIOVASCULAR: Regular S1 S2, no audible murmurs GI: soft, non-tender, normoactive bowel sounds, : No Renal angle tenderness; EXTREMITIES: No edema, no clubbing, no cyanosis. MUSCULOSKELETAL: No Joint Tenderness; no muscle waisting NEURO: Awake; no lateralizing signs. SKIN: No Rash PSYCH; Normal affect - Physical Exam Vital Signs Temp Pulse Resp BP Pulse Ox 96.1 F L 77 18 111/71 94 08/20/18 08:59 08/20/18 09:50 08/20/18 09:49 08/20/18 09:50 08/20/18 09:49 Oxygen Flow Rate (L/min) 2 Oxygen Delivery Method Nasal Cannula Weight: 149.1 kg Body Mass Index (BMI) 40.0 Laboratory Tests Past 24 Hrs WBC 6.8 RBC 5.20 Hgb 14.7 Hct 44.8 MCV 86.2 MCH 28.3 MCHC 32.8 RDW 13.4 Assessment/Plan All Active Problems Chest pain (Acute) Patient is a 43-year-old gentleman presenting with chest pain 1. Chest pain patient has been admitted dated bed: Plan is to rule out AK with serial cardiac enzymes patient undergo a nuclear stress test if AK is ruled out 2. Obesity with BMI of 39.7 lifestyle modification including weight loss advised 3. Insomnia patient uses trazodone at night 4. Anxiety disorder 5. GERD 6. DVT prophylaxis SC Lovenox Code Visit OBSV E AND M: [id number] Initial observation care L3 08/20/18 1310 <Electronically signed by Schuyler Ramos MD> Date Schuyler Ramos MD Cosigner Signature: Date (if applicable) CC: Schuyelr Ramos MD; Francisco Ennis MD Signed TROPONIN-I Collected: 08/20/2018 Status: F Source: [place] 11:40 AM [facility] REPOSITORY Order Comment: 'TROP' Serial specimen #1, #2 or #3: 2 TYPE CODE TESTS RESULT OUT OF RANGE REFERENCE UNITS LAB L501.4010 <0.045 ng/mL Normal < 0.015 TROPONIN-I Result Comment: TROPONIN-I EXPECTED VALUES <0.045 Negative 0.045 - 0.590 Consistent with Cardiac Damage > OR = 0.600 Critical Value Not every elevated troponin is indicative of AK. These values should be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 Number: Effective Repository Date:2018-08-27 08/28/2018 JEIMY Reynolds Primary JEIMY [id number] Insurance:ANTHEMPolic JONESDOB: Community [address] y Number: [id number] [id number] Repository [address]Wqe: (330) Date:5358-71-20PJ [phone] () 000089UETPRTF, [place] [address]WT: 08/28/2018 Secondary NOT GIVENUNK [place] Insurance:SELF PAY [facility] Number: Effective Repository Date:2018-08-27 08/27/2018 JEIMY Reynolds Primary JEIMY Goff [id number] Insurance:ANTHEMPolic JONESDOB: Community [address] y Number: [id number], [place] [id number] Repository [address]Iwu: (330) Date:1285-35-37NT [phone] () [id number], [place] [address]ZL: 08/27/2018 Secondary NOT GIVENUNK [place] Insurance:SELF PAY [facility] Number: Effective Repository Date:2018-08-27 08/21/2018 JEIMY Reynolds Primary JEIMY Goff [id number] Insurance:ANTHEMPolic JONESDOB: Community [address] y Number: [id number], [place] [id number] Repository [address]Mnz: (330) Date:8759-26-85EM [phone] () [id number] DUTTA [address]GI: 08/21/2018 Secondary NOT GIVENUNK [place] Insurance:SELF PAY [facility] Number: Effective Repository Date:2018-08-21 08/20/2018 JEIMY Reynolds Primary JEIMY Goff [id number] Insurance:ANTHEMPolic JONESDOB: Community [address] y Number: [id number], [place] [id number] Repository [address]Yxe: (330) Date:6360-40-62GW [phone] () [id number] DUTTA [address]FL: 08/20/2018 Secondary NOT GIVENUNK [place] Insurance:SELF PAY [facility] Number: Effective Repository Date:2018-08-20 08/20/2018 JEIMY Reynolds Primary JEIMY Goff [id number] Insurance:ANTHEMPolic JONESDOB: Community [address] y Number: [id number], [place] [id number] Repository [address]Azx: (330) Date:5321-40-12RA [phone] () [id number], [place] [address]ET: 08/20/2018 Secondary NOT GIVENUNK [place] [facility] Number: Effective Repository Date:2018-08-20 08/20/2018 JEIMY Reynolds Primary JEIMY Goff [id number] Insurance:ANTHEMPolic JONESDOB: Community [address] y Number: [id number], [place] [id number] Repository [address]Jvu: (330) Date:5010-19-91VR [phone] () 439797LIMOTOY, [place] [address]VR: 08/20/2018 Secondary NOT GIVENUNK [place] Insurance:SELF PAY [facility] Number: Effective Repository Date:2018-08-20 08/20/2018 JEIMY Reynolds Primary JEIMY Goff [id number] Insurance:ANTHEMPolic JONESDOB: Community [address] y Number: [id number], [place] [id number] Repository [address]Tza: (330) Date:8409-09-06JH [phone] () [id number], [place] [address]KG: 08/20/2018 Secondary NOT GIVENUNK [place] Insurance:SELF PAY [facility] Number: Effective Repository Date:2018-08-20 02/07/2018 Jeimy Reynolds Primary Jeimy [id number] Insurance:ANTHEMPolic JonesDOB: Community [address] y Number: [id number], [place] [id number] Repository [address]Kbj: (330) Date:6839-83-46PY [phone] () [id number] [place] [address]TW: 02/07/2018 Secondary NOT GIVENUNK [place] Insurance:SELF PAY [facility] Number: Effective Repository Date:2017-12-27 11/28/2017 Jeimy Reynolds Primary Jeimy Goff [id number] Insurance:ANTHEMPolic JonesDOB: Community [address] y Number: [id number], [place] [id number] Repository [address]Vfe: (330) Date:6405-64-19GX [phone] () [id number] [place] [address]GA: 11/28/2017 Secondary NOT GIVENUNK [place] Insurance:SELF PAY [facility] Number: Effective Repository Date:2017-11-28
== END 2018-10-13 23:59 ==
LOC: NS 10:12
PROVIDERS: Family Provider Family Medicine Geriatric Medicine; PCP Family Medicine Geriatric Medicine; Visit Provider Family Medicine Geriatric Medicine
DX: E66.01 Morbid (severe) obesity due to excess calories (principal); Z68.41 Body mass index [BMI] 40.0-44.9, adult; Z71.3 Dietary counseling and surveillance
CPT/HCPCS: 97802

== ENCOUNTER 2018-10-31 09:30 | Outpatient (RCR) | payer BC, SELFPAY | END 2018-11-13 23:59 | LOC: NS 09:30 | PROVIDERS: Family Provider Family Medicine Geriatric Medicine; PCP Family Medicine Geriatric Medicine; Visit Provider Family Medicine Geriatric Medicine | DX: E66.01 Morbid (severe) obesity due to excess calories (principal); Z68.41 Body mass index [BMI] 40.0-44.9, adult; Z71.3 Dietary counseling and surveillance | CPT/HCPCS: 97803 ==

== ENCOUNTER → 2018-12-05 11:13 | Outpatient (CLI) | payer BC, SELFPAY | PROVIDERS: Family Provider Family Medicine Geriatric Medicine; PCP Family Medicine Geriatric Medicine; Visit Provider Family Medicine Geriatric Medicine | DX: E23.6 Other disorders of pituitary gland (principal) | CPT/HCPCS: 36415; 84403 ==

== ENCOUNTER 2018-12-05 12:00 | Outpatient (RCR) | payer BC, SELFPAY | END 2018-12-11 23:59 | LOC: NS 12:00 | PROVIDERS: Family Provider Family Medicine Geriatric Medicine; PCP Family Medicine Geriatric Medicine; Visit Provider Family Medicine Geriatric Medicine | DX: E66.01 Morbid (severe) obesity due to excess calories (principal); Z68.41 Body mass index [BMI] 40.0-44.9, adult; Z71.3 Dietary counseling and surveillance | CPT/HCPCS: 97803 ==

== ENCOUNTER 2018-12-19 09:36 | Outpatient (RCR) | payer BC, SELFPAY | END 2019-01-11 23:59 | LOC: NS 09:36 | PROVIDERS: Family Provider Family Medicine Geriatric Medicine; PCP Family Medicine Geriatric Medicine; Visit Provider Family Medicine Geriatric Medicine | DX: E66.01 Morbid (severe) obesity due to excess calories (principal); Z68.41 Body mass index [BMI] 40.0-44.9, adult; Z71.3 Dietary counseling and surveillance | CPT/HCPCS: 97803 ==

== ENCOUNTER 2019-01-23 09:00 | Outpatient (RCR) | payer BC, SELFPAY | END 2019-01-23 23:59 | disposition home or self-care (01) | LOC: NS 09:00 | PROVIDERS: Family Provider Family Medicine Geriatric Medicine; PCP Family Medicine Geriatric Medicine; Visit Provider Family Medicine Geriatric Medicine | DX: Z71.3 Dietary counseling and surveillance (principal); E66.01 Morbid (severe) obesity due to excess calories; Z68.41 Body mass index [BMI] 40.0-44.9, adult | CPT/HCPCS: 97803 ==

== ENCOUNTER 2019-02-05 05:24 | Day surgery (SDC) | payer BC, SELFPAY ==
[2019-02-05] VITALS (7 sets, daily range): BP systolic 118–138; BP diastolic 70–83; PULSE 65–87; RESP 16–18; TEMP 36.2–36.7; O2SAT 96–99; BMI 38.3
--- NOTE | 2019-02-05 06:50 | EKG12_ITS ---
Test Reason : PRE OP Blood Pressure : / mmHG Vent. Rate : 062 BPM Atrial Rate : 062 BPM P-R Int : 218 ms QRS Dur : 092 ms QT Int : 410 ms P-R-T Axes : 022 049 -30 degrees QTc Int : 416 ms Sinus rhythm with 1st degree A-V block T wave abnormality, consider inferolateral ischemia Abnormal ECG When compared with ECG of 21-AUG-2018 05:35, No significant change was found Confirmed by GREG LARSON, DONAL ([id number]), photographic editor HALEY KRUGER ([id number]) on 02/09/2019 12:41:02 PM Referred By: Ingrid Weaver Confirmed By:DONAL GARZA MD
--- NOTE | 2019-02-05 07:28 | HP.PCM_ITS ---
History of Present Illness Date of Admission: 02/05/19 Chief Complaint: R foot pain The patient is a 43 year old M who c/o R 1st MPJ pain and deformity with limited ROM. Pt has failed conservative interventions. Past Medical History Past Medical History (Chronic Problems): Chronic Problems (Last Reviewed 02/05/19 @ 07:25 by Ingrid Weaver DPM) BMI 39.0-39.9,adult (Chronic) GERD (gastroesophageal reflux disease) (Chronic) Anxiety disorder (Chronic) Medical History: Medical History (Last Reviewed 02/05/19 @ 07:25 by Ingrid Weaver DPM) Black tarry stools (Acute) K92.1 Hemorrhoids (Acute) K64.9 Diarrhea (Acute) R19.7 Nausea (Acute) R11.0 Abdominal pain (Acute) R10.9 SOB (shortness of breath) (Acute) R06.02 Sleep apnea (Acute) G47.30 Arthritis (Acute) M19.90 Chest pain (Acute) R07.9 BMI 39.0-39.9,adult (Chronic) Z68.39 GERD (gastroesophageal reflux disease) (Chronic) K21.9 Anxiety disorder (Chronic) F41.9 Allergies flaxseed Allergy (Verified 02/05/19 06:33) Itching Home Medications: Ambulatory Orders Medication Instructions Recorded [place]-3 Fatty Acids [Fish Oil] 1,040 mg PO DAILY 07/09/17 Multivitamin [Multiple Vitamins] 1 tab PO DAILY 08/20/18 omeprazole 40 mg capsule,delayed 40 mg PO BID cap 09/09/18 release sucralfate 1 gram tablet 1 g PO QACHS 09/09/18 traZODone [Desyrel] 100 mg PO PRN PRN 01/22/19 Surgical History: Surgical History (Last Reviewed 02/05/19 @ 07:25 by Ingrid Weaver DPM) Hx of varicose vein stripping (Acute) Z98.890 bilateral- 2011 and 2012 History of tonsillectomy and adenoidectomy (Acute) Z98.890 History of ankle surgery (Acute) Z98.890 Left ankle reconstruction- 2013 Hx of sinus surgery (Acute) Z98.890 2016 Psychiatric History: No pertinent psych hx Lives: Spouse/ Significant Other Smoking Status: Former smoker Drugs: None - *Family History Maternal Family History: Family History (Last Reviewed 02/05/19 @ 07:25 by Ingrid Weaver DPM) Mother Arthritis Diabetes Heart disease Hypertension High cholesterol Cancer Father Heart disease Hypertension High cholesterol History Items: - - Healthy with no significant medical issues Paternal Family History: Family History (Last Reviewed 02/05/19 @ 07:25 by Ingrid Weaver DPM) Mother Arthritis Diabetes Heart disease Hypertension High cholesterol Cancer Father Heart disease Hypertension High cholesterol History Items: Heart Disease - CHF Review of Systems Eyes: Denies: Pain, Vision Change HEENT: Denies: Difficulty Hearing, Difficulty Swallowing Cardiovascular: Denies: Chest Pain, Claudication, Chest Pressure Respiratory: Denies: Cough, Shortness of breath upon exertion, Wheezing Gastrointestinal: Denies: Abdominal Pain, Constipation, Diarrhea Genitourinary: Denies: Incontinence, Retention Musculoskeletal: Reports: Joint stiffness, Joint swelling, Joint Tenderness Neurological: Denies: Balance problems, Double vision, Change in Speech Psychiatric: Denies: Anxiety, Depression Endocrine: Denies: Change in Body Habitus Hematologic/ Lymphatic: Denies: Anemia, Easy Bruising, Hx of blood clot VTE Information - Inpt Only VTE Present on Admission: No VTE Mechan Device Prophylaxis: SCD's, Knee High KIMBERLY Hose VTE Pharm Prophylaxis ordered?: Yes Subjective: Pt resting comfortably in pre op. R foot pain is worse since returning from [place]. is present - Physical Exam General: Alert, Cooperative HEENT: PERRLA Oral: Moist Mucosa Neck: No JVD Lungs: Normal air movement Cardiovascular: Regular rate, Regular Rhythm Abdomen: Bowel Sounds Present, Soft, Non Tender Extremities: No clubbing, No cyanosis, No edema Skin: No rashes, No breakdown Musculoskeletal: No Muscle Wasting, Arthritic Changes Lymphatic: No Cervical, Supraclavicular, or Inguinal Adenopathy Neurological: Neuro grossly intact Psych/Mental Status: Normal Affect Vital Signs Temp Pulse Resp BP Pulse Ox 97.1 F L 65 18 130/77 H 98 02/05/19 06:25 02/05/19 06:25 02/05/19 06:25 02/05/19 06:25 02/05/19 06:25 Oxygen Delivery Method Room Air Weight: 315 lb 4.176 oz Body Mass Index (BMI) 38.3 Assessment/Plan All Active Problems (Last Reviewed 02/05/19 @ 07:25 by Ingrid Weaver DPM) Right upper quadrant abdominal pain (Acute) Hx of varicose vein stripping (Acute) History of tonsillectomy and adenoidectomy (Acute) History of ankle surgery (Acute) Hx of sinus surgery (Acute) Black tarry stools (Acute) Hemorrhoids (Acute) Diarrhea (Acute) Nausea (Acute) Abdominal pain (Acute) SOB (shortness of breath) (Acute) Sleep apnea (Acute) Arthritis (Acute) Chest pain (Acute) 43 yo M with R 1st MPJ pain and limited ROM c/w hallux rigidus - Plan for 1st MPJ arthrodesis with internal hardware under [place] -post operative local block for pain control -NWB RLE post op
--- NOTE | 2019-02-05 07:30 | RAD_ITS ---
STUDY: X-RAY - RIGHT FOOT CLINICAL: Male, 43 years old. Pain, decreased range of motion TECHNIQUE: 9 intraoperative view(s) of the foot. COMPARISON: None. FINDINGS: 9 intraoperative films of the right first MTP joint performed as the patient has undergone arthrodesis. RAD/Foot 2 Views IMPRESSION: First MTP joint right arthrodesis Electronically Signed: Rehan Guerrero MD at 10:38 EDT , Service support ,
[2019-02-05] MEDS: Cefazolin 2 GM in 0.9% Normal Saline 100 ML IV (07:41)
[2019-02-05] MEDS: Heparin 10,000 UNITS/10 ML Vial 10000 UNITS (08:15)
[2019-02-05] MEDS: Calcium Chloride 1 GM/10 ML Syringe (08:15)
[2019-02-05] MEDS: Bupivacaine Mpf 0.5% 30 ML VIAL (10:06)
--- NOTE | 2019-02-05 10:30 | RAD_ITS ---
STUDY: X-RAY - RIGHT FOOT CLINICAL: Male, 43 years old. Postop from first MTP joint arthrosis TECHNIQUE: 3 view(s) of the foot. COMPARISON: None. FINDINGS: Normal talus, calcaneus, and tarsal bones. Normal visualized subtalar, talonavicular, calcaneocuboid, tarsal and tarsometatarsal articulations. Normal metatarsi. Patient is status post arthrodesis of the first MTP joint. Alignment is anatomic. Hardware is intact and free of complication. Normal tibial and fibular sesamoid bones. Normal interphalangeal joint of the great toe. Normal phalanges of the great toe. Normal second through fifth metatarsophalangeal joints. Normal interphalangeal joints and phalanges of the lesser toes. The soft tissue structures are unremarkable. RAD/Foot min 3 Views IMPRESSION: Postoperative changes at the first MTP joint, no demonstrated complications or acute abnormality Electronically Signed: Rehan Guerrero MD at 11:05 EDT , Service support ,
--- NOTE | 2019-02-05 10:31 | RAD_ITS ---
STUDY: X-RAY - RIGHT TIBIA AND FIBULA REASON FOR EXAM: Male, 43 years old. Pain TECHNIQUE: 4 view(s) of the tibia and fibula were obtained. COMPARISON: None. FINDINGS: Normal visualized tibia. Normal visualized fibula. The soft tissue structures are unremarkable. RAD/Tibia & Fibula 2 Views IMPRESSION: Normal x-ray examination of the tibia and fibula. Electronically Signed: Rehan Guerrero MD at 11:05 EDT , Service support ,
--- NOTE | 2019-02-05 10:35 | DCINST_ITS ---
Discharge Activity: May Not Drive, May not drive while taking narcotic pain medications., May Not Shower, Use Walker, Use Crutches Ice area for (Minutes): 20 - apply ice behind right knee 20 minutes of each hour while awake Weight Bearing Status: No weight bearing Keep extremity elevated above heart level: Operative Extremity Call your doctor if your incision/area has: Sudden Increased Bleeding Call your doctor if you observe: Fever of 101 or Higher, Shortness of breath, Dizziness, Chest pain, Increased palpitations (irregular heartbeat), Calf discomfort, Uncontrolled pain Cleanse incision/area with: Keep Dressing Clean & Dry Allergies/Adverse Reactions: Allergies flaxseed Allergy (Verified 02/05/19 06:33) Itching Medications to take at Discharge [place]-3 Fatty Acids [Fish Oil] 1,040 mg PO DAILY 07/09/17 Multivitamin [Multiple Vitamins] 1 tab PO DAILY 08/20/18 omeprazole 40 mg capsule,delayed release 40 mg PO BID cap 09/09/18 sucralfate 1 gram tablet 1 g PO QACHS 09/09/18 traZODone [Desyrel] 100 mg PO PRN PRN 01/22/19 Hydrocodone Bitart/Apap 5-325 [Chloride 5MG-325MG] 1 tab PO Q4H PRN PRN 7 Days #28 tab 02/05/19 The following prescriptions were given: Hydrocodone Bitart/Apap 5-325 [Chloride 5MG-325MG] 1 tab PO Q4H PRN PRN 7 Days #28 tab PRN Reason: Pain Primary Care Physician: Francisco Ennis Chi, MD [Primary Care Provider] - Test Results: Test results from this visit will be discussed in further detail at your follow- up appointment, if applicable. Please Follow Up With: Ingrid Weaver DPM When: Please follow up at your previously scheduled post op appointment next week Proposed Discharge Date: 02/05/19
--- NOTE | 2019-02-05 10:42 | OP.PCM_ITS ---
Report of Operation Date of Procedure: 02/05/19 Pre-Operative Diagnosis: R primary osteoarthritis, R hallux rigidus, R ankle contracture/equinus Surgery/Procedure Performed:: R proximal tibia bone marrow aspiration harvest for autologous transfer; R Marilu gastroc recession; R 1st MPJ arthrodesis singe winder: Zac Almanzar Type of Anesthesia:: General, Local Estimated Blood Loss (mL): minimal Description of Procedure: Indications: Pt is a 43 yo male with continued complaints of right 1st mpj pain and limited ROM with equinus of his RLE. Pt has failed nonoperative treatments and presents today for surgical intervention. His is present with him today. All risks, complications, and alternatives were discussed with the patient, and the patient signed an informed consent. No guarantees were given. Procedure: On 02/05/2019, Aroldo Stone was visually and verbally identified in the preoperative holding area. The consent form was again reviewed with the patient, as were all risks, complications, and alternatives and the patient wished to proceed with the proposed surgery. The right foot was marked as the correct operative extremity. The patient was brought to the operating room and placed on the operating room table in the normal SUPINE position. After induction by anesthesia, a surgical time out was performed and all present were in agreement. a pneumatic thigh tourniquet was then placed. At this time the right lower extremity was prepped and draped in the usual sterile fashion. At this time attention was directed to the Right proximal tibia, just distal and slightly medial to the tibial tuberosity a stab incision was made and using the [employer] BMAC system approximately 55cc of BMA was drawn for concentration and autologous transfer later in the procedure. The stab incision was closed with 3.0 prolene and covered with an opsite. After elevation and exsanguination of the RLE with an esmarch the tourniquet was inflated to 300 mmHg. At this time attention was directed to the right medial calf in the proximal medial portion of the lower leg at the myotendinous junction of the gastroc a longitudinal incision was made. The incision was bluntly carried deep through the subcutaneous tissues with careful attention paid to all bleeders, which were clamped and tied or bovied as necessary. All vital neurovascular structures were retracted. A longitudinal incision was made in the fascia and then a Marilu Gastroc recession was performed while tension was placed on the foot to dorsiflex the foot. Improved dorsiflexion was immediately noted. The incision was flushed with copious amounts of normal sterile saline and the fascia was closed with 3.0 vicryl as was the subcutaneous tissue. 3.00 prolene was used for the skin. At this time attention was directed to the right 1st ray. Using a fresh #15 blade a longitudinal incision was made just medial and parallel to the extensor tendon. The incision was bluntly carried deep through the subcutaneous tissues with careful attention paid to all bleeders, which were clamped and tied or bovied as necessary. All vital neurovascular structures were retracted. An l shaped capsulotomy was made with the arm medially at the level of the 1st MPJ. The cartilage of the 1st metatarsal head and the base of the proximal phalanx was noted to by pitted and thinned with numerous osteophytes. The osteophytes were removed with ronguers. A k wire was placed centrally down the 1st metatarsal shaft. The 1st metatarsal was then prepared with a series of reamers for a cup and cone arthrodesis. Reamers were sequentially advanced per [employer] 1st MPJ technique until all cartilage was removed and good healthy bleeding bone was noted. The k wire was then removed and then placed into the base of the pro ximal phalanx and this process was repeated. The 1st MPJ arthrodesis was then temporarily fixated with a kwire to hold position which was confirmed on intraoperative fluoroscopy. When I was satisfied with the position and confirmed the placement of a temporary guide plate. A k wire was placed for the reaming of the compression screw placement. The Alcol[place] 2 1st MPJ arthrodesis plate was placed and held with two temporary wires. The proximal locking screws were then placed per AO technique with placement and screw length confirmed on intraoperative fluoroscopy. I then drilled for the compression screw and measured under intraoperative fluoroscopy. I placed half of the BMAC at this time at the arthrodesis site. I placed the compression screw and removed the temporary wire of the plate and the arthrodesis site. Good bone apposition was noted with visual compression of the site. I then placed the distal two locking screws with length confirmed under intraoperative fluoroscopy. I injected the remaining BMAC at the fusion site to aid in bone healing and fusion and closure was initiated. The 1st MPJ capsule/deep tissue was closed with 2.0 vicryl. The subcutaneous tissues were closed with 3.0 vicryl. The PPP was then placed over the soft tissue to aid in healing and 3.0 prolene was used for skin closure. 20 cc of 0.5% marcaine plain was injected at the surgical sites Opsite was applied to the proximal tibia, betadine soaked adaptic and dry sterile dressings were applied to the incisions, with a multilayer compression dressing and well padded posterior splint. Total tourniquet time was 108 minutes with immediate capillary refill noted to all digits upon deflation. Intra operative fluoroscopy was utilized throughout the case, > 1 hour, to aid in visualization and confirmation of fracture reduction and screw and plate fixations. Interpretation of the images was vital to my decision making process. The patient tolerated the procedure and anesthesia well. The patient was then transported to the postanesthesia care unit by a member of the anesthesia team and myself with all vital signs stable and neurovascular status of the right lower extremity equal to pre-operative levels. At the end of the case all sponge, needle and instrument counts were found to be correct. Grafts/Implants Used: [place] Alcolu plate and screws - Complications none - Admit VTE Documentation VTE Present on Admission: No VTE Mechan Device Prophylaxis: SCD's, Knee High KIMBERLY Hose VTE Pharm Prophylaxis ordered?: Yes
== END 2019-02-05 12:58 | disposition home or self-care (01) ==
LOC: SDC 05:26 → AC 05:26
PROVIDERS: Family Provider Family Medicine Geriatric Medicine; PCP Family Medicine Geriatric Medicine; Referring Provider Podiatrist Foot & Ankle Surgery; Visit Provider Podiatrist Foot & Ankle Surgery
PROC: (CPT 27687; principal; 2019-02-05 07:15)
DX: M19.071 Primary osteoarthritis, right ankle and foot (principal); M20.21 Hallux rigidus, right foot; M24.571 Contracture, right ankle
CPT/HCPCS: 01474; 27687; 28750; 38220; 73590; 73620; 73630; 76000; 93005; C1713; J7120; J2405

== ENCOUNTER 2019-05-21 10:30 | Outpatient (RCR) | payer BC, SELFPAY ==
[2019-02-26 10:04] VITALS: BMI 38.3
--- NOTE | 2019-03-11 15:02 | HP.PTEVAL_ITS ---
Patient's Visit Information JEIMY MCCOLLUM is a 43 year old M referred to Physical Therapy by Ingrid Weaver DPM with a diagnosis of S/P R foot and ankle surgery. Date of Evaluation: 03/11/19 Physical Therapist: Ronan Mcgowan, PT, ATC - Visit Plan Frequency: 2x /Week Duration: 4-6 Weeks Plan: R ankle and great toe stretching and strengthening, balance and proprio ex's, bike, and HEP - Subjective Findings: DOS: 02/05/19. Pt reports he had a bone in his great toe that was growing on to his metatarsal which resulted in great pain. Pt reports he had to have a plate inserted into his first MTP joint. Pt reports he is still in pain now, but the sharp stabbing pain that he had prior to the surgery is now gone. Pt reports he was in a soft cast for 3 weeks, and now has been in a boot for the last 2 weeks. Pt reports tingling near his incisions. No other tingling or numbness. No sleep difficulty secondary to pain. Pt reports he is unable to negotiate stairs at this time. 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 Pt reports he walks 5-8 miles a day at work. 3/10 pain at rest, 5/10 pain at worst. Pt is still NWBing at this time. - Pain R MTP joint Pain Intensity (Out of 10): 3 Pain Intensity Range: 5 - Objective Neuro: B LE sensation is WNL to light touch. Observation: Incisions healed, no signs of infection. ROM: R ankle DF= 3, PF= 50, great toe flex= 5, ext= 0; L ankle DF= 13, PF= 50, great toe flex= 55, ext= 10 degrees. MMT: L ankle 5/5 throughout. R ankle not tested. - Goals Goal 1:: Decrease R foot and ankle pain x 50% to aid with sleep Goal Time Frame: 4-6 Weeks Goal 2:: Increase R ankle DF ROM x 10 degrees to aid with restoring a more normalized gait pattern Goal Time Frame: 4-6 Weeks Goal 3:: Increase R ankle strength to 5/5 to aid with RTW Goal Time Frame: 4-6 Weeks Goal 4:: I with HEP Goal Time Frame: 4-6 Weeks - Rehabilitation Potential Physical Therapy Diagnosis: Pt has R foot pain, weakness, and limited ROM secondary to R foot and ankle surgery Rehabilitation Potential: Good - Anticipated Interventions Patient/Client Instruction: Educate patient on: Condition, Plan of Care For the Purpose of:: To improve self management Therapeutic Exercise to Include: Strength training, Endurance training, Balance training, Flexibilty training, Gait and locomotor training, Passive ROM, Active ROM For the Purpose of:: To decrease pain, To increase ROM, To improve muscle performance and motor function Thank you for the opportunity to evaluate your patient. For Medicare and Medicare HMO plans, please review the plan of care and approve it. It will need to be FAXED BACK to us at [phone] for Medicare purposes. For Medicare only, by signing this I certify the plan of care. Please let me know if there are questions or concerns regarding this plan of care. Physician Signature: __Date:
--- NOTE | 2019-04-30 13:55 | HP.PTREVAL ---
Ingrid Weaver DPM, It has been my pleasure to treat JEIMY MCCOLLUM over the last 12 visits for S/P R foot and ankle surgery. Please see the progress note below for an update on the physical therapy plan of care! Subjective: Pt reports minimal pain this date Objective/Function: R ankle pain ranges from 1/10 to 6/10. R ankle MMT: 4+/5 throughout. R ankle DF RROM: 10 degrees. Pt is progressing well toward Rx goals Plan Plan: cont to progress as tolerated after visit on 05/05/19. Goals Goal 1:: Decrease R foot and ankle pain x 50% to aid with sleep Goal Time Frame: 4-6 Weeks Goal Progress: Goal Met Goal 2:: Increase R ankle DF ROM x 10 degrees to aid with restoring a more normalized gait pattern Goal Time Frame: 4-6 Weeks Goal Progress: Progressing Goal 3:: Increase R ankle strength to 5/5 to aid with RTW Goal Time Frame: 4-6 Weeks Goal Progress: Progressing Goal 4:: I with HEP Goal Time Frame: 4-6 Weeks Goal Progress: Progressing Anticipated Interventions Patient/Client Instruction: Educate patient on: Condition, Plan of Care For the Purpose of:: To improve self management Therapeutic Exercise to Include: Strength training, Endurance training, Balance training, Flexibilty training, Gait and locomotor training, Passive ROM, Active ROM For the Purpose of:: To decrease pain, To increase ROM, To improve muscle performance and motor function Please do not hesitate to contact me at [phone] by phone or if you have questions or concerns regarding this new plan of care! Sincerely, Ronan Mcgowan, PT, ATC
--- NOTE | 2019-05-21 10:44 | HP.PTDCSUM ---
HP - PT D/C Summary It has been my pleasure to treat JEIMY MCCOLLUM under orders from Ingrid Weaver DPM, for the diagnosis of S/P R foot and ankle surgery for a total of 17 visit(s). Discharge Date: Please see the following information for a summary of their discharge status. - Subjective Subjective: R great toe still sore - Pain R MTP joint Pain Intensity (Out of 10): 2 - Overall Improvement % Improvement: 70 - Objective Objective/Function: Pt yesica Rx well - Goals Goal 1:: Decrease R foot and ankle pain x 50% to aid with sleep Goal Progress: Goal Met Goal 2:: Increase R ankle DF ROM x 10 degrees to aid with restoring a more normalized gait pattern Goal Progress: Progressing Goal 3:: Increase R ankle strength to 5/5 to aid with RTW Goal Progress: Progressing Goal 4:: I with HEP Goal Progress: Progressing - Plan Plan: Cont progression of strength and balance as tolerated per plan. - D/C Information If there are questions or concerns regarding this patient's physical therapy, please feel free to call me at [phone]. Thank you for the referral of this patient. Sincerely, Ronan Mcgowan, PT, ATC
== END 2019-05-21 13:19 | disposition home or self-care (01) ==
LOC: PT 10:30
PROVIDERS: Family Provider Family Medicine Geriatric Medicine; PCP Family Medicine Geriatric Medicine; Referring Provider Podiatrist Foot & Ankle Surgery; Visit Provider Podiatrist Foot & Ankle Surgery
DX: M20.21 Hallux rigidus, right foot (principal); M19.071 Primary osteoarthritis, right ankle and foot
CPT/HCPCS: 97035; 97110; 97116; 97140; 97161; 97530

== ENCOUNTER → 2019-06-04 09:14 | Outpatient (CLI) | payer BC, SELFPAY ==
[2019-02-26 10:04] VITALS: BMI 38.3
[2019-06-04 12:26] LABS: Absolute Lymphocyte Count 1.82 X10^3/uL (0.83-4.51); Absolute Neutrophil Count 3.2 X10^3/uL (2.0-7.7); Basophil# 0.03 X10^3/uL; Basophil% 0.5 % (0-1); Eosinophil# 0.11 X10^3/uL; Hematocrit 45.2 % (40-54); Hemoglobin 15.1 g/dL (13.0-16.5); Lymphocyte # 1.82 X10^3/ul (4.0); Lymphocyte % 32.3 % (19-41); Mean Corp Hgb Conc 33.4 g/dL (32-36); Mean Corpuscular Hgb 28.9 pg (27.0-32.0); Mean Corpuscular Volume 86.6 fL (80-94); Mean Platelet Vol. 9.6 fl (6.2-12.0); Monocyte# 0.51 X10^3/uL; NRBC Flagged by Analyzer 0 % (0-5); Neutrophil # 3.15 X10^3/uL (2.7-7.7); Neutrophil % 55.8 % (47-70); Platelet Count 314 K/mm3 (150-450); RBC Distribution Width CV 12.8 % (11.6-14.6); RBC Distribution Width SD 40.2 fl (35.1-43.9); Red Blood Count 5.22 M/mm3 (4.6-6.2); White Blood Count 5.6 K/mm3 (4.4-11.0)
[2019-06-04 13:00] LABS: ALB/GLOB Ratio 1.1 RATIO (0.9-2.4); AST(SGOT) 27 U/L (15-37); Alanine Aminotransfer ALT/SGPT 60 U/L (16-61); Albumin, Serum 3.9 g/dL (3.2-5.0); Alkaline Phosphatase 56 U/L (45-117); Anion Gap 5 (5-15); BUN 19 mg/dL (7-18); BUN/Creat Ratio 23.1 RATIO (10-20); Chloride 110 mmol/L (98-107); Creatinine, Serum 0.82 mg/dL (0.70-1.30); EST Glomerular Filtration Rate 109 mL/min (>60); Est Glom Filt Rate - Afr Amer 132 mL/min (>60); Globulin 3.6 g/dL (2.2-4.2); Glucose 103 mg/dL (74-106); Potassium 4.4 mmol/L (3.5-5.1); Protein, Total 7.5 g/dL (6.4-8.2); Sodium Level 139 mmol/L (136-145); Thyroid Stim Hormone (TSH) 2.19 uIU/mL (0.358-3.74)
== END ==
PROVIDERS: Family Provider Family Medicine Geriatric Medicine; PCP Family Medicine Geriatric Medicine; Visit Provider Family Medicine Geriatric Medicine
DX: R53.83 Other fatigue (principal)
CPT/HCPCS: 36415; 80053; 84443; 85025

== ENCOUNTER → 2019-06-24 14:17 | Outpatient (CLI) | payer OTHER, SELFPAY ==
[2019-02-26 10:04] VITALS: BMI 38.3
== END ==
PROVIDERS: Family Provider Family Medicine Geriatric Medicine; PCP Family Medicine Geriatric Medicine; Referring Provider Physician Assistant Surgical; Visit Provider Physician Assistant Surgical
DX: J02.9 Acute pharyngitis, unspecified (principal)
CPT/HCPCS: 87070

== ENCOUNTER → 2020-09-05 18:10 | Outpatient (CLI) | payer OTHER, SELFPAY | PROVIDERS: PCP Family Medicine Geriatric Medicine; Visit Provider Physician Assistant Surgical | DX: Z11.59 Encounter for screening for other viral diseases (principal) | CPT/HCPCS: 87635; U0003 ==

== ENCOUNTER → 2020-09-16 08:55 | Outpatient (CLI) | payer OTHER, SELFPAY ==
[2020-09-16 11:05] LABS: Absolute Lymphocyte Count 1.06 X10^3/uL (0.83-4.51); Absolute Neutrophil Count 1.6 X10^3/uL (2.0-7.7); Basophil# 0.02 X10^3/uL; Basophil% 0.6 % (0-1); Eosinophil# 0.03 X10^3/uL; Eosinophils% 0.9 % (0-5); Hematocrit 44.5 % (40-54); Hemoglobin 15.1 g/dL (13.0-16.5); Lymphocyte # 1.06 X10^3/ul (4.0); Lymphocyte % 32.1 % (19-41); Mean Corp Hgb Conc 33.9 g/dL (32-36); Mean Corpuscular Hgb 29.3 pg (27.0-32.0); Mean Corpuscular Volume 86.2 fL (80-94); Mean Platelet Vol. 9.6 fl (6.2-12.0); Monocyte# 0.57 X10^3/uL; Monocyte% 17.3 % (0-10); NRBC Flagged by Analyzer 0 % (0-5); Neutrophil % 48.5 % (47-70); Platelet Count 256 K/mm3 (150-450); RBC Distribution Width CV 12.6 % (11.6-14.6); RBC Distribution Width SD 39.4 fl (35.1-43.9); Red Blood Count 5.16 M/mm3 (4.6-6.2); White Blood Count 3.3 K/mm3 (4.4-11.0)
[2020-09-16 11:26] LABS: ALB/GLOB Ratio 0.9 RATIO (0.9-2.4); AST(SGOT) 39 U/L (15-37); Alanine Aminotransfer ALT/SGPT 64 U/L (16-61); Albumin, Serum 3.9 g/dL (3.2-5.0); Alkaline Phosphatase 73 U/L (45-117); Anion Gap 5 (5-15); BUN 14 mg/dL (7-18); BUN/Creat Ratio 15.5 RATIO (10-20); Calcium,Total 8.7 mg/dL (8.5-10.1); Chloride 105 mmol/L (98-107); Creatinine, Serum 0.91 mg/dL (0.70-1.30); EST Glomerular Filtration Rate 97 mL/min (>60); Est Glom Filt Rate - Afr Amer 117 mL/min (>60); Globulin 4.2 g/dL (2.2-4.2); Glucose 101 mg/dL (74-106); Protein, Total 8.1 g/dL (6.4-8.2); Sodium Level 136 mmol/L (136-145); Thyroid Stim Hormone (TSH) 1.38 uIU/mL (0.358-3.74)
== END ==
PROVIDERS: PCP Family Medicine Geriatric Medicine; Visit Provider Family Medicine Geriatric Medicine
DX: R53.83 Other fatigue (principal)
CPT/HCPCS: 36415; 80053; 84443; 85025

== ENCOUNTER → 2020-09-23 06:55 | Outpatient (CLI) | payer OTHER, SELFPAY ==
[2019-06-23 15:05] VITALS: BMI 41.8
--- NOTE | 2020-09-23 06:59 | US_ITS ---
STUDY: ABDOMINAL ULTRASOUND - RIGHT UPPER QUADRANT REASON FOR VISIT: Male, 45 years old ABN LABS TECHNIQUE: Ultrasound evaluation of the right upper quadrant was performed with real-time and static carcamo-scale imaging. TECHNICAL QUALITY: Adequate. COMPARISON: Comparison is made with prior examination dated 08/28/2018. FINDINGS: Liver: The liver is enlarged and measures 19.2 cm. There is increased echogenicity consistent with fatty infiltration. The bile ducts are within normal limits. There is hepatic color flow. The direction of portal flow is hepatopetal. There is no demonstrated mass lesion. Gallbladder: Normal distended gallbladder. The gallbladder wall measures 2.3 mm. There is a negative sonographic Eaton''s sign. There is no pericholecystic fluid. There are no gallstones. Common Bile Duct (C.B.D.): The common bile duct measures 3.5 mm. Pancreas: Normal size of the head, body and tail of the pancreas. There is increased echogenicity of the pancreas. There is no demonstrated pancreatic mass or cyst. Right Kidney: Normal size of the right kidney. The right kidney measures 14.2 cm x 6.4 cm x 5.1 cm. Normal renal cortex. The right cortex measures 1.5 cm. There is no demonstrated renal mass or cyst. There is no right hydronephrosis. US/Abdomen Limited IMPRESSION: Hepatomegaly. Fatty infiltration of the liver. Focal fatty sparing in the left lobe. Electronically Signed: Daren Clayton, at 12:55 EST , Service support ,
== END ==
PROVIDERS: PCP Family Medicine Geriatric Medicine; Referring Provider Family Medicine Geriatric Medicine; Visit Provider Family Medicine Geriatric Medicine
DX: R74.8 Abnormal levels of other serum enzymes (principal)
CPT/HCPCS: 76705

== ENCOUNTER → 2020-10-05 06:48 | Outpatient (CLI) | payer OTHER, SELFPAY ==
--- NOTE | 2020-10-05 06:50 | US_ITS ---
STUDY: ABDOMINAL ULTRASOUND - ELASTOGRAPHY REASON FOR VISIT: Male, 45 years old. Hepatomegaly and fatty infiltration of the liver. TECHNIQUE: Liver stiffness measurements were obtained on a [employer] RS 85 ultrasound machine using a CA 1-7 probe following the SRU guidelines. 3 measurements were obtained using a 2-D-SWE method. The IQR/M was 16% suggesting a quality data set. TECHNICAL QUALITY: Adequate. COMPARISON: Comparison is made with prior sonogram of the right upper quadrant dated 09/23/2020. FINDINGS: Liver: Diffuse fatty infiltration of the liver. Mild hepatomegaly. Median liver stiffness measured 6.7 kPa. US/Elastography Parenchyma/Organ IMPRESSION: Liver stiffness measures 6.7 kPa compatible with F2 --F3. Metavir score. Electronically Signed: Daren Clayton, at 8:51 EST , Service support ,
== END ==
PROVIDERS: PCP Family Medicine Geriatric Medicine; Referring Provider Family Medicine Geriatric Medicine; Visit Provider Family Medicine Geriatric Medicine
DX: K76.0 Fatty (change of) liver, not elsewhere classified (principal)
CPT/HCPCS: 76981

== ENCOUNTER → 2020-10-13 12:04 | Outpatient (CLI) | payer OTHER, SELFPAY ==
[2020-10-13 12:51] LABS: AST(SGOT) 28 U/L (15-37); Alanine Aminotransfer ALT/SGPT 61 U/L (16-61); Albumin, Serum 4.1 g/dL (3.2-5.0); Alkaline Phosphatase 67 U/L (45-117); Anion Gap 4 (5-15); BUN 13 mg/dL (7-18); Calcium,Total 9.5 mg/dL (8.5-10.1); Chloride 104 mmol/L (98-107); EST Glomerular Filtration Rate 87 mL/min (>60); Est Glom Filt Rate - Afr Amer 105 mL/min (>60); Glucose 101 mg/dL (74-106); Potassium 4.2 mmol/L (3.5-5.1); Protein, Total 8.1 g/dL (6.4-8.2); Sodium Level 136 mmol/L (136-145)
== END ==
PROVIDERS: PCP Family Medicine Geriatric Medicine; Visit Provider Family Medicine Geriatric Medicine
DX: R74.8 Abnormal levels of other serum enzymes (principal)
CPT/HCPCS: 36415; 80053